=== PATIENT | female | born 1980 | race Caucasian/White ===

== ENCOUNTER → 2016-12-27 | Outpatient (CLI) | payer BC, OTHER ==
[~2016-12-27] MED LIST: ESCI10TA17 PO; LXP/20 PO; VNTHFA/IN INH
== END | disposition home or self-care (01) ==
LOC: C.PAPS 09:04
PROVIDERS: ATTEND Obstetrics & Gynecology
DX: Z01.419 Encounter for gynecological examination (general) (routine) without abnormal findings (principal)

== ENCOUNTER 2017-11-27 15:17 | Emergency (ER) | payer BC ==
[~2017-11-27] VITALS: Ht 167.6 cm; Wt 84.5 kg
[2017-11-27 16:23] VITALS: TEMP 36.7; Ht 167.6 cm; Wt 84.5 kg
[2017-11-27] MEDS ORDERED: SODIUM CHLORIDE 0.9% 1000ML 1,000 ML IV STA (17:10)
[2017-11-27] MEDS ORDERED: OPTIRAY 320 IV PRN (17:15)
[2017-11-27 17:52] LABS: BASO % 0.1 %; BASO ABS # 0.01 K/uL (0-0.2); EOS % 0.6 %; EOS ABS # 0.06 K/uL (0-0.5); HEMATOCRIT 40.6 % (37-47); HEMOGLOBIN 13.6 g/dL (12.0-16.0); IG# 0.03 K/uL (0.00-0.02); LYMPH % 8.6 %; LYMPH ABS # 0.87 K/uL (1.2-3.4); MEAN CORPUSCULAR HEMOGLOBIN 28.8 pg (25-34); MEAN CORPUSCULAR HGB CONC 33.5 g/dl (32-36); MEAN PLATELET VOLUME 9.5 fL (7.4-10.4); MONO % 1.5 %; MONO ABS # 0.15 K/uL (0.11-0.59); NEUT % 88.9 %; NEUT ABS # 8.97 K/uL (1.4-6.5); PLATELET COUNT 290 K/uL (130-400); RED CELL DISTRIBUTION WIDTH CV 13.4 % (11.5-14.5); RED CELL DISTRIBUTION WIDTH SD 42.1 fL (36.4-46.3); WHITE BLOOD COUNT 10.09 K/uL (4.8-10.8)
[2017-11-27] MEDS ORDERED: AMOX875T PO (17:58)
[2017-11-27] MEDS ORDERED: OMEP40CA41 PO (17:58)
[2017-11-27] MEDS ORDERED: BENZ100C84 PO (17:58)
[2017-11-27] MEDS ORDERED: NORE5TAB5 PO (17:58)
[2017-11-27 18:08] LABS: ALBUMIN 3.4 gm/dl (3.4-5.0); CALCIUM 8.9 mg/dl (8.5-10.1); CREATININE 0.89 mg/dl (0.60-1.20); POTASSIUM 3.4 mmol/L (3.5-5.1)
[2017-11-27 18:10] LABS: TOTAL PROTEIN 7.8 gm/dl (6.4-8.2)
--- NOTE | 2017-11-27 19:13 | DIAGNOSTIC IMAGING REPORT ---
ABD/PELVIS IV CONTRAST ONLY CT DOSE: 523.76 mGy.cm HISTORY: Pelvic pain RLQ pain TECHNIQUE: Multiaxial CT images of the abdomen and pelvis were performed following the use of intravenous contrast. A dose lowering technique was utilized adhering to the principles of ALARA. COMPARISON STUDY: None. FINDINGS: Lung bases are clear. Small hiatal hernia. Liver enhances uniformly. Spleen is uniform. Pancreas is unremarkable. Kidneys negative for hydronephrosis. There is a right kidney and extrarenal pelvis. Abdominal bowel pattern is nonobstructive. Appendix is unremarkable. No free fluid within the pelvic cul-de-sac. IMPRESSION: No significant abnormality identified within the abdomen or pelvis. Normal appendix The above report was generated using voice recognition software. It may contain grammatical, syntax or spelling errors. Electronically signed by: Charly Ellsworth M.D. 11/27/2017 7:12 PM Dictated Date/Time: 11/27/2017 7:03 PM
--- NOTE | 2017-11-27 20:30 | DIAGNOSTIC IMAGING REPORT ---
PELVIC COMPLETE NON OB CLINICAL HISTORY: lower abd pain, RLQ pain PAIN COMPARISON STUDY: None FINDINGS: The uterus measured 7.6 cm. Retroflexed configuration The endometrial stripe measured 10 mm. The right ovary measured 3.4 cm maximum dimension with normal vascular flow. The left ovary measured 3.4 cm maximum dimension with normal vascular flow. There is no ultrasonographic evidence of ovarian torsion. It should be noted that ovarian torsion can be present with normal Doppler ultrasonographic findings. There was no evidence of pathologic free pelvic fluid. IMPRESSION: 1. Retroflexed uterus 2. Otherwise negative pelvic ultrasound. The above report was generated using voice recognition software. It may contain grammatical, syntax or spelling errors. Electronically signed by: Charly Ellsworth M.D. 11/27/2017 8:29 PM Dictated Date/Time: 11/27/2017 8:28 PM
--- NOTE | 2017-11-27 20:31 | EMERGENCY ROOM VISIT NOTE ---
History First contact with patient: 16:55 Chief Complaint: PELVIC PAIN Stated Complaint: PELVIC PAIN, DIZZY History of Present Illness The patient is a 37 year old female who presents to the Emergency Room with complaints of lower abdominal pains. The patient reports that she has had lower abdominal pain for the past 2 weeks. She initially thought she may have had a urinary tract infection. She was seen by her primary care provider for flulike symptoms last week and was placed on Augmentin and Tessalon Perles. She has had persistent lower abdominal pains. She states the pain is worse when she is coughing and is better when she is leaning forward. The pain was initially intermittent but is now constant. She rates the discomfort 6.5/10. She reports that she has been having frequent diarrhea for the past 3 days. Patient reports she has a history of a tubal ligation and D&C for endometriosis. She takes control pills now but states that prior to that , her periods were very heavy. She denies any vomiting, fevers or abnormal vaginal discharge. Review of Systems A complete 10 point review of systems was reviewed with the patient with pertinent positives and negatives as per history of present illness. All else were negative. Past Medical/Surgical History Medical Problems: (1) Asthma (2) PNA (pneumonia) (3) Stomach problems Family History Diabetes mellitus FH: heart disease Hypertension Social History Smoking Status: Never Smoker Alcohol Use: none Drug Use: none Marital Status: Housing Status: lives with significant other Occupation Status: employed Current/Historical Medications Scheduled Amoxicillin & Pot Clavulanate (Augmentin 875-125 mg), 1 TAB PO BID Escitalopram (Lexapro), 20 MG PO QAM Norethindrone (Aygestin), 5 MG PO DAILY Omeprazole (Prilosec), 40 MG PO DAILY Scheduled PRN Albuterol Hfa (Ventolin Hfa), 3 PUFFS INH QID PRN Benzonatate (Tessalon Perles), 100 MG PO Q8 PRN for Cough Physical Exam Vital Signs Date Time Temp Pulse Resp B/P (MAP) Pulse Ox O2 Delivery O2 Flow Rate FiO2 11/27/17 20:57 90 18 120/71 97 11/27/17 17:53 98 18 105/71 97 Room Air 11/27/17 16:23 36.7 111 18 137/80 97 Room Air Physical Exam VITALS: Vitals are noted on the nurse's note and reviewed by myself. Vital signs stable. GENERAL: Here this is a 37-year-old femur, in no acute distress, nondiaphoretic , well-developed well-nourished. SKIN: The skin was without rashes. EARS: External auditory canals clear, tympanic membranes pearly carey without erythema or effusion bilaterally. EYES: Pupils equal round and reactive to light and accommodation. MOUTH: Mucous membranes moist. Tonsils are not enlarged. Pharynx without erythema or exudate. NECK: Supple without nuchal rigidity. No lymphadenopathy. HEART: Regular rate and rhythm without murmurs gallops or rubs. LUNGS: Clear to auscultation bilaterally without wheezes, rales or rhonchi. No retractions or accessory muscle use. ABDOMEN: Positive bowel sounds x 4. Soft, tenderness to palpation across the lower abdomen, right greater than left. No guarding or rebound tenderness. NEURO: Patient was alert and oriented to person place and time. Medical Decision & Procedures ER Provider Diagnostic Interpretation: ABD/PELVIS IV CONTRAST ONLY FINDINGS: Lung bases are clear. Small hiatal hernia. Liver enhances uniformly. Spleen is uniform. Pancreas is unremarkable. Kidneys negative for hydronephrosis. There is a right kidney and extrarenal pelvis. Abdominal bowel pattern is nonobstructive. Appendix is unremarkable. No free fluid within the pelvic cul-de-sac. IMPRESSION: No significant abnormality identified within the abdomen or pelvis. Normal appendix PELVIC COMPLETE NON OB FINDINGS: The uterus measured 7.6 cm. Retroflexed configuration The endometrial stripe measured 10 mm. The right ovary measured 3.4 cm maximum dimension with normal vascular flow. The left ovary measured 3.4 cm maximum dimension with normal vascular flow. There is no ultrasonographic evidence of ovarian torsion. It should be noted that ovarian torsion can be present with normal Doppler ultrasonographic findings. There was no evidence of pathologic free pelvic fluid. IMPRESSION: 1. Retroflexed uterus 2. Otherwise negative pelvic ultrasound. Laboratory Results 11/27/17 17:40 Red Blood Count 4.72, Mean Corpuscular Volume 86.0, Mean Corpuscular Hemoglobin 28.8, Mean Corpuscular Hemoglobin Concent 33.5, Mean Platelet Volume 9.5, Neutrophils (%) (Auto) 88.9, Lymphocytes (%) (Auto) 8.6, Monocytes (%) (Auto) 1.5, Eosinophils (%) (Auto) 0.6, Basophils (%) (Auto) 0.1, Neutrophils # (Auto) 8.97, Lymphocytes # (Auto) 0.87, Monocytes # (Auto) 0.15, Eosinophils # (Auto) 0.06, Basophils # (Auto) 0.01 11/27/17 17:40 Test 11/27/17 16:50 11/27/17 17:40 Urine Color DK YELLOW Urine Appearance CLOUDY (CLEAR) Urine pH 5.0 (4.5-7.5) Urine Specific [place] 1.029 (1.000-1.030) Urine Protein NEG (NEG) Urine Glucose (UA) NEG (NEG) Urine Ketones TRACE (NEG) Urine Occult Blood NEG (NEG) Urine Nitrite NEG (NEG) Urine Bilirubin NEG (NEG) Urine Urobilinogen NEG (NEG) Urine Leukocyte Esterase NEG (NEG) Urine WBC (Auto) 1-5 /hpf (0-5) Urine RBC (Auto) 10-30 /hpf (0-4) Urine Hyaline Casts (Auto) 1-5 /lpf (0-5) Urine Epithelial Cells (Auto) >30 /lpf (0-5) Urine Bacteria (Auto) NEG (NEG) White Blood Count 10.09 K/uL (4.8-10.8) Red Blood Count 4.72 M/uL (4.2-5.4) Hemoglobin 13.6 g/dL (12.0-16.0) Hematocrit 40.6 % (37-47) Mean Corpuscular Volume 86.0 fL (80-100) Mean Corpuscular Hemoglobin 28.8 pg (25-34) Mean Corpuscular Hemoglobin Concent 33.5 g/dl (32-36) Platelet Count 290 K/uL (130-400) Mean Platelet Volume 9.5 fL (7.4-10.4) Neutrophils (%) (Auto) 88.9 % Lymphocytes (%) (Auto) 8.6 % Monocytes (%) (Auto) 1.5 % Eosinophils (%) (Auto) 0.6 % Basophils (%) (Auto) 0.1 % Neutrophils # (Auto) 8.97 K/uL (1.4-6.5) Lymphocytes # (Auto) 0.87 K/uL (1.2-3.4) Monocytes # (Auto) 0.15 K/uL (0.11-0.59) Eosinophils # (Auto) 0.06 K/uL (0-0.5) Basophils # (Auto) 0.01 K/uL (0-0.2) RDW Standard Deviation 42.1 fL (36.4-46.3) RDW Coefficient of Variation 13.4 % (11.5-14.5) Immature Granulocyte % (Auto) 0.3 % Immature Granulocyte # (Auto) 0.03 K/uL (0.00-0.02) Anion Gap 10.0 mmol/L (3-11) Est Creatinine Clear Calc Drug Dose 94.8 ml/min Estimated GFR () 96.0 Estimated GFR (Non- 82.8 BUN/Creatinine Ratio 11.2 (10-20) Calcium Level 8.9 mg/dl (8.5-10.1) Total Bilirubin 0.3 mg/dl (0.2-1) Aspartate Amino Transf (AST/SGOT) 22 U/L (15-37) Alanine Aminotransferase (ALT/SGPT) 30 U/L (12-78) Alkaline Phosphatase 91 U/L (45-117) Total Protein 7.8 gm/dl (6.4-8.2) Albumin 3.4 gm/dl (3.4-5.0) Globulin 4.4 gm/dl (2.5-4.0) Albumin/Globulin Ratio 0.8 (0.9-2) Lipase 145 U/L (73-393) Medications Administered Medications (Trade) Dose Ordered Sig/Marcela Route Start Time Stop Time Status Last Admin Dose Admin Sodium Chloride 1,000 ml @ 999 mls/hr Q1H1M STAT IV 11/27/17 17:10 11/27/17 18:10 DC 11/27/17 17:10 999 MLS/HR ED Course The patient was evaluated as above. Labs were drawn and IV access was obtained. Patient was medicated with 1 L normal saline solution. CT of the abdomen and pelvis was performed and read by radiology as above. Patient was reevaluated and findings of our were discussed. Ultrasound was ordered. Discharge instructions were reviewed with the patient. The patient verbalized understanding of my assessment and treatment plan and was discharged home in good condition. Medical Decision Differential diagnosis includes appendicitis, colitis, gastroenteritis, pelvic inflammatory disease, ovarian cyst, ovarian torsion, endometriosis, urinary tract infection, C. difficile, among others. The patient is a 37-year-old female who presents today complaining of pelvic pain. Labs revealed no leukocytosis, anemia or concerning electrolyte abnormalities. Urinalysis was not suggestive of infection. CT of the abdomen and pelvis was performed and showed no acute inflammatory findings. Ultrasound was then performed and showed no acute findings. Patient was unable to produce a stool sample throughout her stay in the ED. Patient was offered pelvic exam but declined. She will follow-up with her OB/ MAGNETO ELECTRICIAN for this. She does have a history of endometriosis and admits that her symptoms today do feel similar to pain she has had due to this in the past. She was instructed to follow-up with INJECTION MOLDING TECHNICIAN. She was given an order to have her stool tested as an outpatient in case her diarrhea continues. Conservative measures were discussed with the patient. Based on the patient's presentation and work up, I feel the patient is stable for outpatient treatment. The patient was educated to return to the emergency department for any worsening of their current condition or new/concerning symptoms. She will follow up with INJECTION MOLDING TECHNICIAN. Medication Reconcilliation Current Medication List: was personally reviewed by pr Blood Pressure Screening Patient's blood pressure: Normal blood pressure Impression Primary Impression: Pelvic pain Departure Information Dispostion Home / Self-Care Condition GOOD Referrals Genaro Cifuentes M.D. (PCP) Gaurav Yates M.D. Patient Instructions My [facility] Additional Instructions You have been treated in the Emergency Department for your Abdominal Pain. Laboratory results and imaging studies have ruled out any emergent causes for your abdominal pain which would warrant admission or surgery. For pain control, you can use the following [id number] medicines (if >12 yo): - Regular strength (325mg/tab) Tylenol (acetaminophen) 2 tabs every 4-6 hours as needed. Do not exceed 12 tablets in a 24 hour period. Avoid taking more than 4 grams (4000 mg) of Tylenol per day. This includes any other sources of acetaminophen you may take on a regular basis. - Regular strength (200 mg/tab) Advil (ibuprofen) 1-2 tabs every 4-6 hours as needed. Do not exceed a dose of 3200 mg per day. Drink plenty of water and stay well hydrated. As with any trip to the Emergency Department, you should follow-up with your Primary Care Provider from today's visit. You should also follow-up with your INJECTION MOLDING TECHNICIAN. You have been provided with an order to have your stool tested. You may bring this to the main lab when you have collected a sample. Return to the emergency department if your symptoms persist despite treatment plan outlined above or if the following symptoms occur: Worsening pain, fever, vomiting or any other new/concerning symptoms.
[2017-11-27 20:57] VITALS: BP 120/71; PULSE 90; O2SAT 97
== END 2017-11-27 20:58 | disposition home or self-care (01) ==
LOC: C.EDB 15:19 → C.EDC 20:58
DX: R10.2 Pelvic and perineal pain (principal); Z98.51 Tubal ligation status; Z79.3 Long term (current) use of hormonal contraceptives; J45.909 Unspecified asthma, uncomplicated; Z87.01 Personal history of pneumonia (recurrent); Z83.3 Family history of diabetes mellitus; Z82.49 Family history of ischemic heart disease and other diseases of the circulatory system; Z79.899 Other long term (current) drug therapy

== ENCOUNTER 2019-11-07 05:55 | Observation (INO) ==
--- NOTE | 2019-11-02 12:35 | Anesthesiology Consultation ---
Date of Service November 02, 2019 Assessment & Plan (1) Encounter for pre-operative examination: Chart Review Chart Review: Acceptable Risk for Surgery and Patient NOT seen in Pre Admission Testing Consults Requested none History Surgery Operation Date: 11/07/19 07:30 Proposed Procedures p Robotic Assisted Laparoscopic Fundoplication - Edgard Schmitt MD, FACS s Esophagogastroduodenoscopy - Edgard Schmitt MD, FACS Height/Weight Height: 5 ft 6 in Weight: 88.451 kg Allergies Allergy/AdvReac Type Severity Reaction Status Date / Time magnesium salicylate Allergy Intermediate migraine Verified 11/01/19 16:48 headache latex Allergy Mild Hives Verified 11/01/19 16:48 tramadol Allergy Mild Shakiness Verified 11/01/19 16:48 paroxetine AdvReac Mild dizzy Verified 11/01/19 16:48 Medications Home Medications Medication Instructions Recorded Confirmed Last Taken albuterol sulfate 2 puff INHALATION Q6H PRN 05/24/19 11/01/19 06/14/19 05:30 escitalopram oxalate [Lexapro] 30 mg PO QAM 05/24/19 11/01/19 06/14/19 05:30 esomeprazole magnesium [Nexium] 40 mg PO BID 11/01/19 11/01/19 Unknown polyethylene glycol 3350 [Miralax] 17 g PO DAILY 11/01/19 11/01/19 Unknown Past Medical History Medical History Anxiety Asthma Bronchitis HX OF BRONCHITIS AGE 25 Constipation GERD (gastroesophageal reflux disease) Hiatal hernia History of anesthesia reaction HAD ASTHMA ATTACK ONE TIME AFTER MINOR KNEE SURGERY 20 YRS AGO Past Family History Family History Mother Diabetes Hypertension Stroke Father Heart disease Past Surgical History Surgical History History of colonoscopy History of dilatation and curettage 2009 & 2010 History of endometrial ablation History of tonsillectomy 2009 Hx of knee surgery Hx of tubal ligation Social History Smoking Status: Never smoker Do You Dip or Chew Tobacco: No Hx Alcohol Use: Yes alcohol intake frequency: holidays/special occasions only Hx Substance Use: No substance use type: does not use Testing Laboratory Results Laboratory Tests 11/01/19 11/01/19 13:15 13:15 WBC 7.20 Hgb 13.1 Plt Count 334 Sodium 139 Potassium 3.4 L Chloride 110 H Carbon Dioxide 24 BUN 8 Creatinine 0.72 Glucose 106 H
[2019-11-07] MEDS ORDERED: LR 15ML/HR IV SCH (06:00)
[2019-11-07] MEDS ORDERED: BUPIVACAINE 0.5 % 5 MG/1 ML MPF 30ML VIAL ONE (07:05)
[2019-11-07] MEDS ORDERED: SODIUM CHLORIDE 0.9% PF 50 ML VIAL ONE (07:05)
[2019-11-07] MEDS ORDERED: BUPIVACAINE LIPOSOME 1.3% 266 MG/20 ML VIAL ONE (07:05)
[2019-11-07] MEDS ORDERED: ONDANSETRON INJ 2 MG/ML 2 ML VIAL ONE (07:06)
[2019-11-07] MEDS ORDERED: GLYCOPYRROLATE 0.2 MG/ML VIAL ONE (07:06)
[2019-11-07] MEDS ORDERED: PROPOFOL IV EMULSION 10 MG/ML 20 ML VIAL IV ONE ×2 (07:06→11:03)
[2019-11-07] MEDS ORDERED: LIDOCAINE HCL 2% 2 ML VIAL/AMP(20MG/ML) INFIL ONE (07:06)
[2019-11-07] MEDS ORDERED: NEOSTIGMINE METHYLSULFATE 5 MG/5 ML SYR ONE (07:06)
[2019-11-07] MEDS ORDERED: DEXAMETHASONE SOD INJ 4 MG/ML VIAL ONE (07:06)
[2019-11-07] MEDS ORDERED: MIDAZOLAM HCL 1 MG/ML 2ML VIAL ONE (07:07)
[2019-11-07] MEDS ORDERED: fentaNYL citrate 100 MCG/2 ML VIAL ONE ×4 (07:07→12:07)
--- NOTE | 2019-11-07 07:29 | History & Physical Bridge Note ---
Date of Service November 07, 2019 History & Physical Bridge Note I have examined the patient, reviewed the History & Physical and in the interval since the performance of the History & Physical I have noted the following changes of clinical significance: no changes noted
[2019-11-07] MEDS ORDERED: ROCURONIUM BROMIDE 10 MG/ML 5 ML VIAL ONE (09:52)
[2019-11-07] MEDS ORDERED: CEFAZOLIN 2000MG 2,000 MG/15 ML SYR IV ONE (10:05)
[2019-11-07] MEDS ORDERED: FLOSEAL HEMOSTATIC MATRIX 10ML TOP ONE (10:06)
[2019-11-07] MEDS ORDERED: SURGICEL ABSORB HEMOSTAT 2IN X 14IN TOP ONE (10:06)
[2019-11-07] MEDS ORDERED: ACETAMINOPHEN 1000 MG/100 ML IV IV ONE (10:53)
[2019-11-07] MEDS ORDERED: CEFAZOLIN 250 MG/ML 1 GM VIAL ONE (11:16)
--- NOTE | 2019-11-07 11:45 | Operative Report ---
PG Post Operative Report Pre & Post Diagnosis Operation Date: 11/07/19 07:30 Pre-Op Diagnosis: Hiatal Hernia;Gastroesophageal reflux disease Post-Op Diagnosis: Hiatal Hernia;Gastroesophageal reflux disease I identified the patient and participated in the time-out.: Yes Procedure Operation Date: 11/07/19 07:30 Actual Procedures p Robotic-Assisted Laparoscopic Fundoplication; - Edgard Schmitt MD, FACS s Esophagogastroduodenoscopy - Edgard Schmitt MD, FACS Surgeon Edgard Schmitt MD, FACS Autocutter Jc STOUT Estimated Blood Loss 200 Findings Consistent with Post-Op Diagnosis Specimens Gastroesophageal fatpad and hernia sac Anesthesia Type General Complications none Disposition Accompanied Patient To Recovery: Yes Disposition: Recovery Room Description of Procedure Maria Esther is a 39-year-old who has medically refractory gastroesophageal reflux disease with a small hiatal hernia. I met her in the office recently and she is quite desirous of having a fundoplication. We discussed this in some detail. Discussed risk and benefits. Elected to proceed. On 11/07/2019 the patient brought the operating room and underwent a robot- assisted laparoscopic fundoplication. She did well. I was surprised at the size of the hiatal hernia but this came together under no tension. In addition we did a floppy Natalia with just 2 sutures. I contemplated doing a partial fundoplication however this laid very nicely so we performed a floppy Natalia instead. The liver retractor because a small tear in the left lobe of the liver and we use the aqua Mantis to control the bleeding. She tolerated it well. I did do an esophagoscopy the end of the case and scope went through the GE junction nicely and on retroflexion the fundoplication look quite nice. Procedure: The patient was brought to the operating room and laid in the supine position. General anesthesia was induced no tracheal intubation was performed. Prophylactic antibiotics were given. After appropriate timeout was called a 5 mm scope was used to direct a 5 mm port in the midline below the xiphoid process into the peritoneal cavity. There were no adhesions. Carbon dioxide was insufflated. Good visualization and 5 mm port was placed in the right inferior lateral aspect of the peritoneal cavity and a pretzel retractor was used to retract the liver. We had good visualization I was surprised at how much stomach was in the hernia. 5 mm port was placed on the left posteriorly and laterally and then 2 8 mm ports were placed on either side of the midline at about the midclavicular line. Finally a 12 mm assistance port was placed just to the left of the midline. The robot was docked. Trendelenburg position was obtained and we used the retractor to keep the liver superiorly position. The vessel sealer was used to take down the short gastrics we freed up the greater curvature quite nicely and came all the way up to the hiatus. We then freed up the sac along the entire circumference and this was done quite easily. We then identified the esophagus and the anterior and posterior vagus nerves and care was taken to avoid injury to these. We then removed the sac and we also remove the fat pad quite meticulously. 0 silk was used in a bqkwek-al-zhbuz fashion x2 to close the posterior crura. I used 1 more simple suture to pull the crura together. This was under no tension whatsoever and the tissue mike eared very healthy. We then pulled the posterior fundus around to the anterior fundus and this came together under no tension. A simple 2-0 silk suture was used to bring the fundus together. We then used 2 sutures that incorporated the posterior and anterior fundus and the esophagus 1 cm above the suture. We placed another suture 1 cm above to incorporate the anterior posterior fundus and the esophagus. I did use 2 separate 2-0 silk sutures to anchor the fundus to the crura anteriorly. As we were closing we could see there was a small tear in the liver from retraction along the left lobe. This is been oozing. Using an Aquamantys we were able to cauterize this. There was no further bleeding. I did place a piece of Surgicel over top of this area. Then an esophagoscopy was performed without difficulty. This brought us down to the gastroesophageal junction and I was able to cross this easily with the gastroscope. Evaluate the stomach look quite good. I insufflated carbon diox mary we did not see evidence of any air leaking at the repair site. On retroflexion the fundoplication look quite good. I then suctioned out carbon oxide from the stomach and insufflated to remove the scope. The larger port sites were closed with a heavy Maxon suture. 4 Monocryl was used in running septic or fashion approximate the wound edges after we had decompressed the stomach and really and undocked the robot. She tolerated well was extubated in the room. Microbial dressings were placed she is transported to the postanesthesia care in stable condition.
[2019-11-07] MEDS ORDERED: METOCLOPRAMIDE HCL INJ 5 MG/ML 2 ML VIAL IV ONE (12:00)
[2019-11-07] MEDS: fentaNYL citrate 100 MCG/2 ML VIAL IV PRN ×4 (12:06→12:30)
[2019-11-07] MEDS ORDERED: ONDANSETRON INJ 2 MG/ML 2 ML VIAL IV PRN (12:11)
[2019-11-07] MEDS ORDERED: ePHEDrine sulfate 50 MG/ML AMP IV PRN (12:11)
[2019-11-07] MEDS ORDERED: ATROPINE SULFATE 0.1 MG/ML 10ML SYR IV PRN (12:11)
--- NOTE | 2019-11-07 12:42 | XRay Report ---
XR chest 1V portable HISTORY: Postop. s/p tru COMPARISON: Chest 06/11/2007. FINDINGS: There are low lung volumes. There are bibasilar densities, left greater the right. The hear t is mildly enlarged. Mild central pulmonary vascular congestion without overt edema. There is subcut aneous emphysema within the neck base. Suspect a small amount of pneumomediastinum. There are small b ilateral pneumothoraces measuring a maximal pleural gap of 3 mm on the left and 9 mm on the right. IMPRESSION: 1. Small amount of pneumomediastinum and small bilateral pneumothoraces as described above. This is l ikely due to the recent postoperative change. Continued follow-up recommended. 2. Bibasilar densities are nonspecific but may represent atelectasis. 3. Mild congestive change. ACT 112: Negative or not required by law. Electronically signed by: Betito Garcia M.D. 11/07/2019 12:41 PM
--- NOTE | 2019-11-07 13:04 | Anesthesiology Progress Note ---
Date of Service November 07, 2019 Anesthesia Post Procedure Vital Signs Vital Signs: Temp Pulse Pulse Resp BP BP Pulse Ox 11/07/19 12:50 37 C 93 H 12 122/86 93 11/07/19 12:40 99 H 16 130/84 96 11/07/19 12:30 93 H 16 134/90 93 11/07/19 12:20 105 H 16 139/87 95 11/07/19 12:10 101 H 16 146/98 H 98 11/07/19 12:00 36.3 C L 112 H 16 126/86 99 11/07/19 06:20 36.8 C 89 20 126/88 95 Transfer of Care Handoff Completed per policy Notes Mental Status: alert / awake / arousable Patient Amnestic to Procedure: Yes Nausea / Vomiting: adequately controlled Pain: adequately controlled Airway Patency, RR, SpO2: stable & adequate BP & HR: stable & adequate Hydration State: stable & adequate Anesthetic Complications: no major complications apparent and Pt Satisfied with anesthetic care Notes: The patient is awake and comfortable.
[2019-11-07] MEDS ORDERED: ALBUTEROL HFA 8 GM INHALER INH PRN (13:18)
[2019-11-07] MEDS ORDERED: INFLUENZA VIRUS QUAD VACCINE 0.5 ML SYR IM ONE (13:41)
[2019-11-07] MEDS ORDERED: INFLUENZA ADMINISTRATION CHARGE ONE (13:41)
[2019-11-07] MEDS: D5W AND 1/2NSS 1,000 ML IV SCH ×2 (14:06→23:56)
[2019-11-07] MEDS: ONDANSETRON INJ 2 MG/ML 2 ML VIAL IV SCH ×3 (14:11→21:25)
[2019-11-07] MEDS: OXYCODONE HCL IR 5 MG TAB (IMMEDIATE RELEASE) PO PRN ×2 (14:11→20:10)
[2019-11-07] MEDS: METOCLOPRAMIDE HCL INJ 5 MG/ML 2 ML VIAL IV SCH ×2 (14:12→22:15)
--- NOTE | 2019-11-07 14:21 | Anesthesiology Progress Note ---
Date of Service November 07, 2019 Anesthesia Post Procedure Vital Signs Vital Signs: Temp Pulse Pulse Resp BP BP Pulse Ox 11/07/19 14:05 37.1 C 77 19 122/74 98 11/07/19 13:40 37 C 98 H 20 127/89 95 11/07/19 13:20 37.2 C 107 H 20 117/68 95 11/07/19 12:50 37 C 93 H 12 122/86 93 11/07/19 12:40 99 H 16 130/84 96 11/07/19 12:30 93 H 16 134/90 93 11/07/19 12:20 105 H 16 139/87 95 11/07/19 12:10 101 H 16 146/98 H 98 11/07/19 12:00 36.3 C L 112 H 16 126/86 99 11/07/19 06:20 36.8 C 89 20 126/88 95 Pain Intensity Abdomen: Pain Intensity: 3 Transfer of Care Handoff Completed per policy Notes Mental Status: alert / awake / arousable Patient Amnestic to Procedure: Yes Nausea / Vomiting: adequately controlled Pain: adequately controlled Airway Patency, RR, SpO2: stable & adequate BP & HR: stable & adequate Hydration State: stable & adequate Anesthetic Complications: no major complications apparent
[2019-11-07] MEDS: ACETAMINOPHEN 1,000 MG/100 ML VIAL IV SCH ×2 (16:38→23:56)
[2019-11-07] MEDS: MoRPHine SULFATE 2 MG/ML CARP IV PRN ×2 (19:15→21:25)
[2019-11-07] MEDS: PANTOprazole 40 MG TAB PO SCH (20:13)
[2019-11-07] MEDS: DOCUSATE SODIUM 100 MG CAP PO SCH (20:13)
[2019-11-08] MEDS: ONDANSETRON INJ 2 MG/ML 2 ML VIAL IV SCH ×3 (01:24→08:44)
[2019-11-08] MEDS: OXYCODONE HCL IR 5 MG TAB (IMMEDIATE RELEASE) PO PRN ×2 (03:26→09:54)
[2019-11-08] MEDS: METOCLOPRAMIDE HCL INJ 5 MG/ML 2 ML VIAL IV SCH (06:07)
[2019-11-08] MEDS: ACETAMINOPHEN 1,000 MG/100 ML VIAL IV SCH (07:43)
--- NOTE | 2019-11-08 08:35 | Anesthesiology Progress Note ---
Date of Service November 08, 2019 Anesthesia Post Procedure Vital Signs Vital Signs: Temp Pulse Pulse Pulse Resp BP BP 11/08/19 07:29 36.7 C 88 16 113/75 11/08/19 05:23 104/68 11/08/19 03:11 36.7 C 97 H 16 111/74 11/07/19 23:05 36.8 C 101 H 18 115/72 11/07/19 21:13 36.9 C 107 H 16 122/76 11/07/19 19:21 37.2 C 117 H 16 115/73 11/07/19 17:40 36.7 C 116 H 18 124/74 11/07/19 16:05 37.1 C 110 H 18 134/78 11/07/19 15:30 36.7 C 95 H 18 133/80 11/07/19 14:05 37.1 C 77 19 122/74 11/07/19 13:40 37 C 98 H 20 127/89 11/07/19 13:20 37.2 C 107 H 20 117/68 11/07/19 12:50 37 C 93 H 12 122/86 11/07/19 12:40 99 H 16 130/84 11/07/19 12:30 93 H 16 134/90 11/07/19 12:20 105 H 16 139/87 11/07/19 12:10 101 H 16 146/98 H 11/07/19 12:00 36.3 C L 112 H 16 126/86 Pulse Ox 11/08/19 07:29 97 11/08/19 05:23 11/08/19 03:11 94 11/07/19 23:05 94 11/07/19 21:13 95 11/07/19 19:21 95 11/07/19 17:40 94 11/07/19 16:05 94 11/07/19 15:30 93 11/07/19 14:05 98 11/07/19 13:40 95 11/07/19 13:20 95 11/07/19 12:50 93 11/07/19 12:40 96 11/07/19 12:30 93 11/07/19 12:20 95 11/07/19 12:10 98 11/07/19 12:00 99 Pain Intensity Abdomen: Pain Intensity: 3 Notes Mental Status: alert / awake / arousable and participated in evaluation Patient Amnestic to Procedure: Yes Nausea / Vomiting: adequately controlled Pain: adequately controlled Airway Patency, RR, SpO2: stable & adequate BP & HR: stable & adequate Hydration State: stable & adequate Anesthetic Complications: no major complications apparent and Pt Satisfied with anesthetic care
[2019-11-08] MEDS: D5W AND 1/2NSS 1,000 ML IV SCH (08:40)
[2019-11-08] MEDS: PANTOprazole 40 MG TAB PO SCH (08:40)
[2019-11-08] MEDS: DOCUSATE SODIUM 100 MG CAP PO SCH (08:40)
[2019-11-08] MEDS ORDERED: ESCITALOPRAM OXALATE 10 MG TAB PO SCH (09:00)
--- NOTE | 2019-11-08 12:12 | Discharge Summary ---
DISCHARGE DIAGNOSES: Hiatal hernia with gastroesophageal reflux, which was intractable to medical management. HOSPITAL COURSE: This is a very nice 39-year-old who has been suffering with progressively worse symptoms of gastroesophageal reflux, which is unresponsive to medical management. I was asked to evaluate her for surgical repair by her human resources hr representative. On 11/07/2019, the patient underwent an uncomplicated repair of her rather large hiatal hernia. I was a bit surprised at its size. We removed the sac and did a repair. There was no tension on her crura at all. We did a floppy Natalia fundoplication. She did well after surgery, although she had some pain. She had no reflux the night after surgery. The following morning, a barium swallow looked quite good. No evidence of extravasation and a good repair. We will see her back in the office in the next week for a postop check.
[2019-11-08] MEDS ORDERED: OXYCODONE HCL IR 5 MG TAB (IMMEDIATE RELEASE) PO STA (13:53)
--- NOTE | 2019-11-09 08:05 | Fluoroscopy Report ---
FL barium swallow w/o air CLINICAL HISTORY: 39 years-old Female presenting with s/p Natalia. TECHNIQUE: A routine single contrast esophagram was performed using 100 mL of water soluble Optiray 3 00. Multiple spot images of the esophagus were acquired both upright and prone. COMPARISON: None. FINDINGS: Ingestion: The patient was able to ingest contrast without difficulty. No barium pill was administere d. Aspiration: None. Esophageal mucosa: Normal. No evidence of intrinsic or extrinsic mass lesion. Esophageal motility: Tertiary contractions indicate dysmotility. A column of contrast was evident in the distal esophagus. Esophageal length: Normal. Gastroesophageal junction: Patent though less than normal opening likely due to expected postsurgical change of reported Natalia fundoplication with postoperative edema. No extraluminal contrast to sugge st perforation. No high-grade obstruction. Reflux: Reflux cannot be assessed given the presence of intraesophageal column of contrast. Gastric emptying: Limited evaluation of the stomach demonstrates normal gastric emptying. No obstruct ion or leak. Fluoroscopy dosage (mGy): Not available. Fluoroscopy time: 1.8 minutes. Number or time of high level fluoroscopy (HLF), digital spot, or digital subtraction images: 12. IMPRESSION: 1. Expected postsurgical appearance status post Natalia fundoplication. Mild presumed postoperative e stella in the region of the fundoplication without evidence of obstruction or perforation. 2. Esophageal dysmotility and delayed clearance not unexpected in the immediate postsurgical setting . Continued follow-up to be considered. ACT 112: Negative or not required by law. Electronically signed by: Efren Delacruz M.D. 11/09/2019 8:04 AM
== END 2019-11-08 14:40 | disposition home or self-care (01) ==
LOC: ASU 05:55 → 3W 05:55

== ENCOUNTER 2024-01-25 11:23 | Observation (INO) ==
[2024-01-25] MEDS: SODIUM CHLORIDE 0.9% 500 ML IV STA (11:57)
[2024-01-25 12:50] LABS: Basophils # (auto) 0.03 K/uL (0.00-0.20); Basophils % (auto) 0.4 %; Eosinophils # (auto) 0.12 K/uL (0.00-0.50); Eosinophils % (auto) 1.4 %; Hematocrit (blood only) 39.6 % (37.0-47.0); Hemoglobin 13.2 g/dl (12.0-16.0); Immature Granulocytes # (auto) 0.02 K/uL (0.01-0.20); Immature Granulocytes % (auto) 0.2 %; Lymphocytes # (auto) 2.18 K/uL (1.20-3.40); Lymphocytes % (auto) 25.7 %; Mean Corpuscular Hemoglobin 29.5 pg (25.0-34.0); Mean Corpuscular Hgb Conc 33.3 g/dL (32.0-36.0); Mean Corpuscular Volume 88.6 fL (80.0-100.0); Mean Platelet Volume 10.3 fL (9.4-12.4); Monocytes # (auto) 0.62 K/uL (0.11-0.59); Monocytes % (auto) 7.3 %; Neutrophils # (auto) 5.52 K/uL (1.40-6.50); Platelet Count 334 K/uL (130-400); RDW Coefficient of Variation 12.2 % (11.5-14.5); RDW Standard Deviation 39.7 fL (36.4-46.3); Red Blood Count 4.47 M/uL (4.20-5.40); White Blood Count 8.49 K/ul (4.8-10.8)
[2024-01-25 13:00] LABS: Alanine Aminotransferase 13 U/L (7-52); Albumin Globulin Ratio 1.3 (0.9-2); Albumin Level 4.3 gm/dl (3.4-5.0); Alkaline Phosphatase 61 U/L (34-104); Anion Gap 8 (3-11); Aspartate Aminotransferase 17 U/L (13-39); BUN Creatinine Ratio 21.4 (10-20); Bilirubin,Total 0.5 mg/dl (0.2-1.0); Blood Urea Nitrogen 15 mg/dl (6-23); Calcium 9.7 mg/dl (8.6-10.3); Carbon Dioxide 23 mmol/L (21-32); Chloride 107 mmol/L (98-107); Est GFR (Non-African American) 106.1 ml/min; Globulin 3.2 gm/dl (2.5-4.0); Glucose 96 mg/dl (70-99(Fasting)); Potassium 3.7 mmol/L (3.5-5.1); Sodium 138 mmol/L (136-145); Total Protein 7.5 gm/dl (6.0-8.3)
[2024-01-25 13:51] LABS: POC Urine Bilirubin 1+ (Negative); POC Urine Blood 50 (Negative); POC Urine Glucose Normal (Normal); POC Urine Leukocytes Negative (Negative); POC Urine Nitrite Negative (Negative); POC Urine Protein Negative (Negative); POC Urine Urobilinogen Normal (Normal); POC Urine pH 7 (4.5-7.5)
--- NOTE | 2024-01-25 14:38 | Emergency Department Note ---
History of Present Illness General Chief complaint: Abdominal Pain Stated complaint: AB PAIN Time Seen by Provider: 01/25/24 14:38 History of Present Illness Maximum Pain Intensity: 7 NAME: MICHELLE BLOCK AGE: 43 SEX: F : 1980 ARRIVES VIA: Ambulance INFORMANT: Patient ED PROVIDER(S): KRISTOPHER Rasheed, Shiela Joseph MD The patient is a 43-year-old female who arrives to the emergency department for evaluation of right flank and right lower quadrant pain. The patient reports she was recently seen here for a 4 mm obstructing kidney stone. At that time she was also diagnosed with a dilated appendix, however no appendicitis. She reports she is to have her appendix removed on Tuesday, however the pain from the kidney stone has worsened. She reports her pain is a 10/10, and she did have near syncope due to the pain. She arrived via ambulance and was provided with IV Toradol, and Zofran. She reports no fevers, however vomiting due to pain, she denies shortness of breath or chest pain. She reports she is currently taking Flomax for this known kidney stone. Home Medications Medication Instructions Recorded Confirmed Type escitalopram oxalate 20 mg tablet 30 mg PO QAM 05/24/19 01/25/24 History (Lexapro) fluticasone 250 mcg-salmeterol 50 1 inh inhalation BID 01/12/24 01/25/24 History mcg/dose blistr powdr for inhalation (Advair Diskus) multivitamin 1 tab PO DAILY 01/12/24 01/25/24 History ondansetron 4 mg disintegrating 4 mg PO Q6H PRN nausea and 01/12/24 01/25/24 Rx tablet vomiting #14 tabs oxycodone 5 mg tablet 5 mg PO Q6H PRN pain #14 tabs 01/12/24 01/25/24 Rx tamsulosin 0.4 mg capsule 0.4 mg PO HS 01/20/24 01/25/24 History Allergies Allergy/AdvReac Type Severity Reaction Status Date / Time magnesium salicylate Allergy Intermediate migraine Verified 01/20/24 11:14 headache latex Allergy Mild Hives Verified 01/20/24 11:14 tramadol Allergy Mild Shakiness Verified 01/20/24 11:14 paroxetine AdvReac Mild dizzy Verified 01/20/24 11:14 Past Med/Surg History Medical History Kidney stone Bronchitis hx-age 25 Constipation ongoing Hiatal hernia GERD (gastroesophageal reflux disease) hx-no current issues since sx. Anxiety Asthma daily and prn inh Surgical History Status post Natalia fundoplication (11/07/19) p Robotic-Assisted Laparoscopic Fundoplication; Esophagogastroduodenoscopy Dr. Scmhitt 11-07-19 Hx of knee surgery Hx of tubal ligation 2019 History of endometrial ablation History of anesthesia reaction age 16, asthma attack following knee surgery>"no issues since then" History of colonoscopy History of dilatation and curettage 2009 & 2010 History of tonsillectomy 2008 Family History Mother Diabetes Hypertension Stroke Father Heart disease Grandfather Colorectal cancer Social History Smoking Status: Never smoker Second Hand Exposure: Yes (hx growing up); Do You Dip or Chew Tobacco: No; Tobacco Cessation Education Requested by Patient: No Hx Alcohol Use: No Hx Substance Use: No Preferred Language: Bangladeshi Communication Ability: Effective Block Placer Required: No Beliefs That Will Affect Care: None marital status: Current Living Situation: Family current occupational status: employed current occupation: teacher How many Children do You have: 1 Other Information That Helps Us Care for You: No Feels Safe at Home: Yes Safety Concerns: Feels Safe At This Time Assistive Devices: None Physical Exam Vital Signs Vital Signs - 24 hr 01/25/24 11:39 01/25/24 15:10 01/25/24 15:45 Temperature 36.9 C Temperature Source Temporal Artery Scan Pulse Rate 93 H Pulse Rate [Right Finger] 84 90 Pulse Rhythm [Right Finger] Pulse Strength [Right Finger] Respiratory Rate 18 19 16 Respiratory Effort / Characteristics Non-Labored Spontaneous Respiratory Depth Normal Respiratory Pattern Regular Blood Pressure 122/79 Blood Pressure [Right Arm] 104/89 141/88 H Blood Pressure Mean 93 Blood Pressure Mean [Right Arm] 94 105 Blood Pressure Position Sitting Blood Pressure Position [Right Arm] Pulse Oximetry 98 97 99 Oxygen Delivery Method Room Air Room Air Room Air Sepsis Recent Fever Within 48 Hours No Sepsis New/Unexplained Change in Mental Status N/A Sepsis Action Taken by Nursing No Action Required 01/25/24 15:55 01/25/24 16:19 01/25/24 16:37 Temperature 37.3 C Temperature Source Oral Pulse Rate 85 86 Pulse Rate [Right Finger] 81 Pulse Rhythm [Right Finger] Regular Pulse Strength [Right Finger] Normal Respiratory Rate 19 20 Respiratory Effort / Characteristics Non-Labored Spontaneous Respiratory Depth Normal Respiratory Pattern Regular Blood Pressure 141/89 H Blood Pressure [Right Arm] 136/91 Blood Pressure Mean Blood Pressure Mean [Right Arm] 106 Blood Pressure Position Blood Pressure Position [Right Arm] Semi-fowlers Pulse Oximetry 99 98 Oxygen Delivery Method Room Air Room Air Sepsis Recent Fever Within 48 Hours Sepsis New/Unexplained Change in Mental Status Sepsis Action Taken by Nursing VITALS: Vitals are noted on the nurse's note and reviewed by myself. Vital signs stable. GENERAL: 43-year-old female, in no acute distress, nondiaphoretic, well- developed well-nourished. SKIN: The skin was without rashes, erythema, edema, or bruising. HEAD: Normocephalic atraumatic. HEART: Regular rate and rhythm without murmurs gallops or rubs. LUNGS: Clear to auscultation bilaterally without wheezes, rales or rhonchi. No retractions or accessory muscle use. ABDOMEN: Positive bowel sounds x 4. Right CVA tenderness, right lower quadrant tenderness to palpation. MUSCULOSKELETAL: No muscle atrophy, erythema, or edema noted. Full range of motion without joint tenderness in all extremities. No tenderness to palpation. Normal gait. Strength 5/5 throughout. NEURO: Patient was alert and oriented to person place and time. No focal neurological deficits. Course Administered Medications Acetaminophen (Acetaminophen 325 Mg Tab) 650 mg PO Q4H PRN PRN Reason: pain/fever Stop: 02/24/24 18:52 Last Admin: 01/26/24 15:41 Dose: 650 mg Documented By: Admin: 01/26/24 04:02 Dose: 650 mg Documented By: LINDA Escitalopram Oxalate (Escitalopram Oxalate 10 Mg Tab) 30 mg PO [facility] Stop: 02/25/24 08:59 Last Admin: 01/26/24 08:24 Dose: 30 mg Documented By: HARJIT Fluticasone/Vilanterol (Fluticasone/Vilanterol 200/25mcg 14 Puffs/Inhaler) 1 puffs INH DAILY [place]; Protocol Stop: 02/25/24 08:59 Last Admin: 01/26/24 08:26 Dose: Not Given Documented By: HILARIO Ceftriaxone Sodium 1,000 mg/ (Dextrose) 50 mls @ 100 mls/hr IV Q24H [place]; Protocol Stop: 02/05/24 15:59 Last Infusion: 01/26/24 16:13 Dose: Infused Documented By: Admin: 01/26/24 15:42 Dose: 100 mls/hr Documented By: HILARIO Lactated Ringer's (Lr) 1,000 mls @ 125 mls/hr IV .Q8H [place] Stop: 02/25/24 03:29 Last Infusion: 01/26/24 16:13 Dose: 125 mls/hr Documented By: Infusion: 01/26/24 15:50 Dose: 0 mls/hr Documented By: Admin: 01/26/24 12:09 Dose: 125 mls/hr Documented By: Infusion: 01/26/24 12:09 Dose: Infused Documented By: Admin: 01/26/24 04:23 Dose: 125 mls/hr Documented By: KISHA Multivitamins (Multivitamin Tab) 1 tab PO DAILY [place] Stop: 02/25/24 08:59 Last Admin: 01/26/24 08:26 Dose: Not Given Documented By: HARJIT Ondansetron HCl (Ondansetron Inj 2 Mg/Ml 2 Ml Vial) 4 mg IV Q6H PRN PRN Reason: Nausea Stop: 02/24/24 18:52 Last Admin: 01/26/24 03:18 Dose: 4 mg Documented By: ENRIKE Fluticasone/Salmeterol (Fluticasone/Salmeterol 250/50 (Advair) 14 Puff/1 Inhaler) 1 puffs INH BID [place] Stop: 02/25/24 08:59 Last Admin: 01/26/24 09:53 Dose: 1 puffs Documented By: HARJIT Tamsulosin HCl (Tamsulosin Hcl 0.4 Mg Cap) 0.4 mg PO HS [place] Stop: 02/24/24 20:59 Last Admin: 01/25/24 21:50 Dose: 0.4 mg Documented By: LINDA Discontinued Medications Sodium Chloride (Nss) 500 mls @ 999 mls/hr IV .Q31M STA Stop: 01/25/24 12:10 Last Infusion: 01/25/24 12:36 Dose: Infused Documented By: Admin: 01/25/24 11:57 Dose: 999 mls/hr Documented By: NNEKA Sodium Chloride (Nss) 1,000 mls @ 999 mls/hr IV .Q1H1M [place] Stop: 01/25/24 16:45 Last Infusion: 01/25/24 19:51 Dose: Infused Documented By: Admin: 01/25/24 16:03 Dose: 999 mls/hr Documented By: Infusion: 01/25/24 16:03 Dose: Infused Documented By: Admin: 01/25/24 15:08 Dose: 999 mls/hr Documented By: VLADIMIR Ceftriaxone Sodium (Rocephin) 1,000 mg in 50 mls @ 100 mls/hr IV NOW STA Stop: 01/25/24 16:29 Last Infusion: 01/25/24 19:51 Dose: Infused Documented By: Admin: 01/25/24 16:18 Dose: 100 mls/hr Documented By: ALMA Lactated Ringer's (Lr) 1,000 mls @ 999 mls/hr IV .Q1H1M ONE Stop: 01/26/24 04:17 Last Infusion: 01/26/24 04:24 Dose: Infused Documented By: Admin: 01/26/24 03:25 Dose: 999 mls/hr Documented By: LINDA Miscellaneous (Patient's Height &/Or Weight Needed) 1 each N/A Q30M [place] Stop: 01/25/24 23:46 Last Admin: 01/25/24 22:12 Dose: Not Given Documented By: Admin: 01/25/24 22:12 Dose: Not Given Documented By: Admin: 01/25/24 22:12 Dose: Not Given Documented By: Admin: 01/25/24 20:57 Dose: 1 each Documented By: LINDA Morphine Sulfate (Morphine Sulfate 4 Mg/Ml 1 Ml Carp\\Vial) 4 mg IV NOW STA Stop: 01/25/24 14:44 Last Admin: 01/25/24 15:00 Dose: 4 mg Documented By: MES Ondansetron HCl (Ondansetron Inj 2 Mg/Ml 2 Ml Vial) 4 mg IV NOW STA Stop: 01/25/24 14:44 Last Admin: 01/25/24 15:00 Dose: 4 mg Documented By: [facility] Oxybutynin Chloride (Oxybutynin Chloride 5 Mg Tab) 5 mg PO NOW STA Stop: 01/26/24 10:27 Last Admin: 01/26/24 11:01 Dose: 5 mg Documented By: [facility] Medical Decision Making Differential Diagnosis Appendicitis, ovarian cyst, ovarian torsion, ectopic , TOA, PID, infections, diverticulitis, UTI, obstruction, mesenteric ischemia, aortic pathology, inflammatory bowel disease, renal colic, PUD, pancreatitis, biliary pathology, hernia, volvulus, constipation, as well as other pathologies. Medical Records Attestation: I reviewed the patient's medical records. Home Medications Current Medication List: was personally reviewed by me Laboratory Data Attestation: I reviewed the patient's lab results. No leukocytosis, stable hemoglobin and hematocrit, no electrolyte abnormalities, urinalysis shows 2+ ketones, 1+ blood, trace leukocyte esterase. 01/26/24 06:34 01/26/24 06:34 Lab Results 01/25/24 01/25/24 01/25/24 Range/Units 12:00 13:39 13:47 WBC 8.49 (4.8-10.8) K/ul RBC 4.47 (4.20-5.40) M/uL Hgb 13.2 (12.0-16.0) g/dl Hct 39.6 (37.0-47.0) % MCV 88.6 (80.0-100.0) fL MCH 29.5 (25.0-34.0) pg MCHC 33.3 (32.0-36.0) g/dL RDW Std Deviation 39.7 (36.4-46.3) fL RDW Coeff of Alise 12.2 (11.5-14.5) % Plt Count 334 (130-400) K/uL MPV 10.3 (9.4-12.4) fL Immature Gran % (Auto) 0.2 % Neut % (Auto) 65.0 % Lymph % (Auto) 25.7 % [place] % (Auto) 7.3 % Eos % (Auto) 1.4 % Baso % (Auto) 0.4 % Neut # (Auto) 5.52 (1.40-6.50) K/uL Lymph # (Auto) 2.18 (1.20-3.40) K/uL [place] # (Auto) 0.62 H (0.11-0.59) K/uL Eos # (Auto) 0.12 (0.00-0.50) K/uL Baso # (Auto) 0.03 (0.00-0.20) K/uL Immature Gran # (Auto) 0.02 (0.01-0.20) K/uL Sodium 138 (136-145) mmol/L Potassium 3.7 (3.5-5.1) mmol/L Chloride 107 (98-107) mmol/L Carbon Dioxide 23 (21-32) mmol/L Anion Gap 8 (3-11) BUN 15 (6-23) mg/dl Creatinine 0.70 (0.6-1.2) mg/dl Est Cr Clr Drug Dosing Not Reportable Est GFR ( Amer) 123.0 ml/min Est GFR (Non-Af Amer) 106.1 ml/min BUN/Creatinine Ratio 21.4 H (10-20) Glucose 96 (70-99(Fasting)) mg/dl Calcium 9.7 (8.6-10.3) mg/dl Total Bilirubin 0.5 (0.2-1.0) mg/dl AST 17 (13-39) U/L ALT 13 (7-52) U/L Alkaline Phosphatase 61 (34-104) U/L Total Protein 7.5 (6.0-8.3) gm/dl Albumin 4.3 (3.4-5.0) gm/dl Globulin 3.2 (2.5-4.0) gm/dl Albumin/Globulin Ratio 1.3 (0.9-2) Urine Color Yellow Urine Appearance Cloudy A (Clear) Urine pH 8.5 H (4.5-7.5) POC Urine pH 7 (4.5-7.5) Ur Specific [place] > 1.045 H (1.000-1.030) Urine Protein 1+ H (Negative) POC Urine Protein Negative (Negative) Urine Glucose (UA) Negative (Negative) POC Ur Glucose (UA) Normal (Normal) Urine Ketones 2+ H (Negative) POC Urine Ketones 2+ (Moderate) H (Negative) Urine Blood 1+ H (Negative) POC Urine Blood 50 H (Negative) Urine Nitrite Negative (Negative) POC Urine Nitrite Negative (Negative) Urine Bilirubin Negative (Negative) POC Urine Bilirubin 1+ H (Negative) Urine Urobilinogen Negative (Negative) POC Urine Urobilinogen Normal (Normal) Ur Leukocyte Esterase Trace H (Negative) POC U Leukocyte Esteras Negative (Negative) Urine WBC (Auto) 0-5 (0-5) /hpf Urine RBC (Auto) 11-20 H (0-2) /hpf U Hyaline Cast (Auto) 0-2 (0-2) /lpf U Epithel Cells (Auto) 11-20 H (0-2) /hpf Urine Bacteria (Auto) 2+ H (None Seen) POC Ur Test NEG (NEG) Imaging Data Radiologist's Impression: Abdomen/Pelvis CT 01/25/24 13:16 CT OF THE ABDOMEN AND PELVIS WITH CONTRAST CLINICAL HISTORY: Right-sided abdominal pain. COMPARISON STUDY: CT of the abdomen and pelvis January 12, 2024. TECHNIQUE: Following IV administration of 94 mL of Optiray, axial images of the abdomen and pelvis were obtained from the lung bases to the proximal femurs. Images were reviewed in the axial, sagittal, and coronal planes. IV contrast was administered without complication. Automated exposure control was utilized for the study. A dose lowering technique was utilized adhering to the principles of ALARA. CT DOSE: 1082.32 mGy.cm FINDINGS: Lung bases are unremarkable. No pneumatosis, free air or portal venous gas is present. An intermediate attenuation segment 7 hepatic lesion is probably benign. There is no biliary or pancreatic ductal dilatation. Left kidney, adrenal glands and pancreas are unremarkable. Moderate right hydronephrosis has increased since CT of January 12, 2024. There has been distal migration of the previously described 4 mm right ureteral calculus now within the distal ureter, just proximal to the ureterovesical junction. The right nephrogram is delayed. There is no evidence for a bowel obstruction. The appendix is mildly dilated, measuring 1.1 cm in caliber. No periappendiceal infiltration is present. Ovaries are not enlarged. IMPRESSION: 1. Increase in moderate right hydronephrosis with delayed nephrogram due to a 4 mm right ureteral calculus now within the distal right ureter. 2. No bowel obstruction. No bowel wall thickening. 3. Mildly dilated appendix without adjacent infiltration. An underlying mucocele cannot be excluded. Nonemergent Surgical consultation is recommended. ACT 112: Negative or not required by law. Electronically signed by: Frantz Quezada M.D. 01/25/2024 2:38 PM MDM Narrative The patient is a 43-year-old female who arrives to the emergency department with her for the above-stated complaint. Upon examination the patient is having severe right CVA and RLQ pain. She states she is unable to control her urination due to the pain. Initial workup was performed in triage including a saline lock, cbc, cmp, urinalysis, and administration of 1LNSS. After examination the patient was placed in a room from the waiting area for administration of morphine, zofran and a second 1LNSS. CBC, CMP were reassuring, urinalysis showed bacteriuria. Ct imaging showed the known nephrolithiasis however it has descended into the distal right ureter. Urology was consulted regarding the bacteriuria. It was decided the patient be taken to the OR for stenting and given IV rocephin for treatment. Case management was notified as well as [facility] hospitalist group. Dr. Silva will take over care of the patient upon admission with Dr. Matthew from urology performing her procedure. Please refer to their documentation for further patient care. Impression & Plan Ureterolithiasis, Hydronephrosis due to obstruction of ureter Discharge Plan Visit Data Chief Complaint: Abdominal Pain Stated Complaint: AB PAIN ED Provider: Shiela Joseph ED Midlevel Provider: Doris Nye Discharge Problem: Ureterolithiasis, Hydronephrosis due to obstruction of ureter Patient Disposition: Admitted As Inpatient Discharge Instructions Interventions: ED Discharge Assessment Last Done: 01/25/24 16:19
--- NOTE | 2024-01-25 14:39 | CT Scan Report ---
CT OF THE ABDOMEN AND PELVIS WITH CONTRAST CLINICAL HISTORY: Right-sided abdominal pain. COMPARISON STUDY: CT of the abdomen and pelvis January 12, 2024. TECHNIQUE: Following IV administration of 94 mL of Optiray, axial images of the abdomen and pelvis we re obtained from the lung bases to the proximal femurs. Images were reviewed in the axial, sagittal, and coronal planes. IV contrast was administered without complication. Automated exposure control wa s utilized for the study. A dose lowering technique was utilized adhering to the principles of ALARA . CT DOSE: 1082.32 mGy.cm FINDINGS: Lung bases are unremarkable. No pneumatosis, free air or portal venous gas is present. An i ntermediate attenuation segment 7 hepatic lesion is probably benign. There is no biliary or pancreati c ductal dilatation. Left kidney, adrenal glands and pancreas are unremarkable. Moderate right hydron ephrosis has increased since CT of January 12, 2024. There has been distal migration of the previously described 4 mm right ureteral calculus now within the distal ureter, just proximal to the ureterovesi marquis junction. The right nephrogram is delayed. There is no evidence for a bowel obstruction. The appe ndix is mildly dilated, measuring 1.1 cm in caliber. No periappendiceal infiltration is present. Ovar ies are not enlarged. IMPRESSION: 1. Increase in moderate right hydronephrosis with delayed nephrogram due to a 4 mm right ureteral marquis culus now within the distal right ureter. 2. No bowel obstruction. No bowel wall thickening. 3. Mildly dilated appendix without adjacent infiltration. An underlying mucocele cannot be excluded. Nonemergent Surgical consultation is recommended. ACT 112: Negative or not required by law. Electronically signed by: Frantz Quezada M.D. 01/25/2024 2:38 PM
[2024-01-25 14:47] LABS: Appearance Urine Cloudy (Clear); Bacteria Urine Automated 2+ (None Seen); Bilirubin Urine Negative (Negative); Blood Urine 1+ (Negative); Cast Urine Automated 0-2 /lpf (0-2); Color Urine Yellow; Glucose Urine UA Negative (Negative); Ketones Urine 2+ (Negative); Leukocyte Esterase Urine Trace (Negative); Nitrite Urine Negative (Negative); Protein Urine 1+ (Negative); Specific Gravity Urine > 1.045 (1.000-1.030); Urobilinogen Urine Negative (Negative); WBC Urine Automated 0-5 /hpf (0-5); pH Urine 8.5 (4.5-7.5)
[2024-01-25] MEDS: MoRPHine SULFATE 4 MG/ML 1 ML CARP\\VIAL IV STA (15:00)
[2024-01-25] MEDS: ONDANSETRON INJ 2 MG/ML 2 ML VIAL IV STA (15:00)
[2024-01-25] MEDS: SODIUM CHLORIDE 0.9% 1,000 ML IV SCH (15:08)
--- NOTE | 2024-01-25 16:10 | Urology Consultation ---
Date of Consultation January 25, 2024 Assessment & Plan (1) Acute right flank pain: (2) Hydronephrosis due to obstruction of ureter: (3) Ureterolithiasis: 43 yo/F presented to the emergency department today for acute right flank pain secondary to an obstructing right distal ureteral calculus with hydronephrosis She is afebrile and hemodynamically stable Labs reviewedcreatinine 0.70, WBC 8.49, hemoglobin 13.2 Urinalysis with 1+ blood, trace LE, 2+ bacteria Urine culture is pending--follow culture Continues to have moderate right flank and right lower quadrant discomfort CT imaging reviewed and discussed with patient Discussed options for stone management We discussed recommendation for right ureteral stent placement given second ER presentation for acute right flank pain and her UA with bacteria Ureteral stents were discussed in detail Discussed that stone treatment would take place at a later date She is agreeable to the plan Will proceed to the OR for cystoscopy, retrograde pyelogram and right ureteral stent placement Risk and benefits of procedure to be reviewed with patient by Dr. Matthew Keep NPO for procedure Discussed plan of care with ER provider She will be given IV ceftriaxone preoperatively Continue supportive care Supervising Physician Co-Signing Physician Notes Discussed patient with SATHYA. Agree with plan. Recommend cystoscopy, right retrograde right ureteral stent given positive UA and bounce back admission. Discussed reason why we cannot treat stone at this time. Consent obtained. Patient marked. Ceftriaxone for preop antibiotics History of Present Illness History of Present Illness This is a 43-year-old female with a right-sided obstructing ureteral stone. Patient initially presented to the emergency department on 01/12/[address] scan was performed. CT showed an obstructing 4 mm proximal right ureteral calculus with hydronephrosis. She was also noted to have a dilated appendix, concerning for mucocele, no acute appendicitis. She was discharged from the ED. She returned to the ED today with worsening right flank and right lower quadrant abdominal pain. Labs showed creatinine 0.70, WBC 8.49, hemoglobin 13.2. Urinalysis notable for 1+ blood, trace LE, 11-20 RBC, 11-20 epithelial cells and 2+ bacteria. Urine negative. CT imaging showed increase in moderate right hydronephrosis with delayed nephrogram due to to a 4 mm right ureteral calculus now within the distal right ureter. She was afebrile and hemodynamically stable in the ED. Reports pain is 6/10 at present. Nausea/vomiting improved since arrival. No fever or chills. She reports some dysuria and urinary incontinence. No hematuria. Last ate at 0700, but vomited afterward. This is her first kidney stone. No known family history of stones. She had outpatient consultation with general surgery regarding mucocele and is pending appendectomy on 01/30. Allergies Allergy/AdvReac Type Severity Reaction Status Date / Time magnesium salicylate Allergy Intermediate migraine Verified 01/20/24 11:14 headache latex Allergy Mild Hives Verified 01/20/24 11:14 tramadol Allergy Mild Shakiness Verified 01/20/24 11:14 paroxetine AdvReac Mild dizzy Verified 01/20/24 11:14 Home Medications Medication Instructions Recorded Confirmed Type escitalopram oxalate 20 mg tablet 30 mg PO QAM 05/24/19 01/25/24 History (Lexapro) fluticasone 250 mcg-salmeterol 50 1 inh inhalation BID 01/12/24 01/25/24 History mcg/dose blistr powdr for inhalation (Advair Diskus) multivitamin 1 tab PO DAILY 01/12/24 01/25/24 History ondansetron 4 mg disintegrating 4 mg PO Q6H PRN nausea and 01/12/24 01/25/24 Rx tablet vomiting #14 tabs oxycodone 5 mg tablet 5 mg PO Q6H PRN pain #14 tabs 01/12/24 01/25/24 Rx tamsulosin 0.4 mg capsule 0.4 mg PO HS 01/20/24 01/25/24 History Patient History Medical History Kidney stone Bronchitis hx-age 25 Constipation ongoing Hiatal hernia GERD (gastroesophageal reflux disease) hx-no current issues since sx. Anxiety Asthma daily and prn inh Surgical History Status post Natalia fundoplication (11/07/19) p Robotic-Assisted Laparoscopic Fundoplication; Esophagogastroduodenoscopy Dr. Schmitt 11-07-19 Hx of knee surgery Hx of tubal ligation 2019 History of endometrial ablation History of anesthesia reaction age 16, asthma attack following knee surgery>"no issues since then" History of colonoscopy History of dilatation and curettage 2009 & 2010 History of tonsillectomy 2009 Family History Mother Diabetes Hypertension Stroke Father Heart disease Grandfather Colorectal cancer Social History Smoking Status: Never smoker Second Hand Exposure: Yes (hx growing up); Do You Dip or Chew Tobacco: No; Hx Alcohol Use: No Hx Substance Use: No Preferred Language: Paraguayan Communication Ability: Effective Administrative Assistant Data Entry Required: No Beliefs That Will Affect Care: None marital status: Current Living Situation: Family and Significant Other current occupational status: employed current occupation: teacher How many Children do You have: 1 Feels Safe at Home: Yes Assistive Devices: Contacts and Glasses Review of Systems Review of Systems: ROS was performed with pertinent positives noted as above; all other systems negative Physical Exam Constitutional: well developed and well nourished; no acute distress Respiratory: normal respiratory effort; no respiratory distress and no labored breathing Gastrointestinal (Abdomen): Inspection/Auscultation: abdomen normal to inspection Musculoskeletal: Head/Neck/Chest: normocephalic Neurologic: moves all extremities and awake Psychiatric: Orientation: alert and oriented x 3 Results & Data Vital Signs (Past 12 Hours) Vital Signs Temp Pulse Pulse Resp BP BP Pulse Ox 01/25/24 15:55 85 01/25/24 15:45 90 16 141/88 H 99 01/25/24 15:10 84 19 104/89 97 01/25/24 11:39 36.9 C 93 H 18 122/79 98 O2 Del Method 01/25/24 15:55 01/25/24 15:45 Room Air 01/25/24 15:10 Room Air 01/25/24 11:39 Room Air PG Care Time/CCT Total # of Minutes Spent Total Time Spent with Patient: Total time spent is greater than 50% in coordination of care (as documented) at patient's floor/unit and/or counseling patient: Coding Level of Care Code 70439 OFFICE CONSULT LVL Diagnoses Acute right flank pain R10.9 Hydronephrosis due to obstruction of ureter N13.1 Ureterolithiasis N20.1
[2024-01-25] MEDS ORDERED: LIDOCAINE 2% 2 ML VIAL/AMP(20MG/ML) INFIL ONE ×2 (16:12→17:30)
[2024-01-25] MEDS ORDERED: PROPOFOL IV EMULSION 10 MG/ML 20 ML VIAL IV ONE ×2 (16:12→17:30)
[2024-01-25] MEDS ORDERED: fentaNYL citrate PF 100 MCG/2 ML VIAL ONE (16:12)
--- NOTE | 2024-01-25 16:14 | Anesthesiology Consultation ---
Date of Service January 25, 2024 Assessment & Plan Chart Review Chart Review: Acceptable Risk for Surgery and Patient NOT seen in Pre Admission Testing Consults Requested none ASA ASA2E Proposed Anesthesia Anesthesia Type: MAC Risk / Benefits Reviewed With: PT / POA / Parent / Guardian, Accepts Plan and Informed Consent Obtained History Surgery Operation Date: 01/25/24 13:35 Proposed Procedures p Cystoscopy, Retrograde Pyelogram, Right Stent Placement - Baron Matthew MD Height/Weight Height: 5 ft 6 in Allergies Allergy/AdvReac Type Severity Reaction Status Date / Time magnesium salicylate Allergy Intermediate migraine Verified 01/20/24 11:14 headache latex Allergy Mild Hives Verified 01/20/24 11:14 tramadol Allergy Mild Shakiness Verified 01/20/24 11:14 paroxetine AdvReac Mild dizzy Verified 01/20/24 11:14 Medications Home Medications Medication Instructions Recorded Confirmed Last Taken escitalopram oxalate 20 mg tablet 30 mg PO QAM 05/24/19 01/25/24 11/07/19 05:00 (Lexapro) fluticasone 250 mcg-salmeterol 50 1 inh inhalation BID 01/12/24 01/25/24 Unknown mcg/dose blistr powdr for inhalation (Advair Diskus) multivitamin 1 tab PO DAILY 01/12/24 01/25/24 Unknown ondansetron 4 mg disintegrating 4 mg PO Q6H PRN nausea and 01/12/24 01/25/24 Unknown tablet vomiting #14 tabs oxycodone 5 mg tablet 5 mg PO Q6H PRN pain #14 tabs 01/12/24 01/25/24 Unknown tamsulosin 0.4 mg capsule 0.4 mg PO HS 01/20/24 01/25/24 Unknown Past Medical History Medical History Kidney stone Bronchitis hx-age 25 Constipation ongoing Hiatal hernia GERD (gastroesophageal reflux disease) hx-no current issues since sx. Anxiety Asthma daily and prn inh Past Family History Family History Mother Diabetes Hypertension Stroke Father Heart disease Grandfather Colorectal cancer Past Surgical History Surgical History Status post Natalia fundoplication (11/07/19) p Robotic-Assisted Laparoscopic Fundoplication; Esophagogastroduodenoscopy Dr. Schmitt 11-07-19 Hx of knee surgery Hx of tubal ligation 2019 History of endometrial ablation History of anesthesia reaction age 16, asthma attack following knee surgery>"no issues since then" History of colonoscopy History of dilatation and curettage 2010 & 2011 History of tonsillectomy 2009 Past Anesthesia History No Hx of Anesthesia Complications and No Family Hx of Anesthesia Complications Social History Smoking Status: Never smoker Do You Dip or Chew Tobacco: No Hx Alcohol Use: No alcohol intake frequency: holidays/special occasions only Hx Substance Use: No substance use type: does not use Review of Systems ROS Unobtainable: All systems reviewed & are unremarkable except as noted in HPI & below Physical Exam Vital Signs Last Vital Signs Temp 36.9 C 01/25/24 11:39 Pulse 85 01/25/24 15:55 Resp 16 01/25/24 15:45 BP 141/88 H 01/25/24 15:45 Pulse Ox 99 01/25/24 15:45 O2 Del Method Room Air 01/25/24 15:45 ENMT Mouth: no TMJ abnormality Thyromental Distance: > or= 3.5 Finger Breadths Mallampati Class: II Neck normal visual inspection and trachea midline; neck extension not limited Respiratory normal respiratory effort Auscultation: lungs clear to auscultation bilaterally Cardiovascular Rate/Rhythm: regular rate and regular rhythm Heart Sounds: no murmur Musculoskeletal Spine: normal cervical ROM Extremities: full ROM of extremities Neurologic moves all extremities Psychiatric Orientation: alert and oriented x 3 Testing Laboratory Results 01/25/24 12:00 01/25/24 12:00 Urine Color Yellow 01/25/24 13:39 Urine Appearance Cloudy (Clear) A 01/25/24 13:39 Urine pH 8.5 (4.5-7.5) H 01/25/24 13:39 Ur Specific [place] > 1.045 (1.000-1.030) H 01/25/24 13:39 Urine Protein 1+ (Negative) H 01/25/24 13:39 Urine Glucose (UA) Negative (Negative) 01/25/24 13:39 Urine Ketones 2+ (Negative) H 01/25/24 13:39 Urine Nitrite Negative (Negative) 01/25/24 13:39 Ur Leukocyte Esterase Trace (Negative) H 01/25/24 13:39 Urine WBC (Auto) 0-5 /hpf (0-5) 01/25/24 13:39 Urine RBC (Auto) 11-20 /hpf (0-2) H 01/25/24 13:39 U Hyaline Cast (Auto) 0-2 /lpf (0-2) 01/25/24 13:39 U Epithel Cells (Auto) 11-20 /hpf (0-2) H 01/25/24 13:39 Urine Bacteria (Auto) 2+ (None Seen) H 01/25/24 13:39 01/25/24 13:47 POC Ur Test NEG
[2024-01-25] MEDS: cefTRIAXone SODIUM 1,000 MG/50 ML BAG IV STA (16:18)
[2024-01-25] MEDS ORDERED: MIDAZOLAM HCL 1 MG/ML 2ML VIAL ONE (16:20)
--- NOTE | 2024-01-25 16:45 | History & Physical Report ---
Date of Service January 25, 2024 Assessment & Plan (1) Hydronephrosis due to obstruction of ureter: Plan: Ureterolithiasis with hydronephrosis Urology following. Pending cystoscopy and right stent placement, recommended for medical admission Continue Rocephin daily, follow UCx results Patient not comfortable with discharge following stenting No CRYSTAL. BMP continued. (2) Mucocele of appendix: Plan: Without appendicitis Pending lab and possible appendectomy next Tuesday No leukocytosis, no rebound tenderness. Suspect her current flank pain is due to her stone, will follow clinical reassessment. CT on admission does not show adjacent infiltration, imaging is consistent with mucocele which she was already pending laparoscopy and potential appendectomy next Tuesday. General surgery notified of patient inpatient status, no signs of acute appendicitis on admission. Dilation remains stable at 11mm (3) Asthma: Plan: Asthma Patient with no recent hospitalizations, nighttime wheezing, or recent exacerbation however if she misses her Advair does notice this almost immediately with increased wheezing Advair continued Lungs clear on admitting exam Plan Chronic stable issues: Anxiety/depression: Lexapro continued DVT prophylaxis: Low risk, SCDs Disposition: Medical/surgical CODE STATUS: Full code Diet: N.p.o. pending cystoscopy History of Present Illness Primary Care Provider: Genaro Cifuentes MD 43-year-old female with right obstructing ureteral stone, 4 mm with hydro. Patient has a mucocele dilated appendix pending elective appendectomy this g week. She is nontoxic at bedside assessment. UA is infected appearing. Patient has been seen by urology, patient will have stent placement today. As per case complicated with a dilated appendix and pending surgical evaluation as outpatient is recommended for monitoring medical service. Manage seen at the bedside. She reports that she has had worsening right lower quadrant and right mid flank pain much worse in the last 24 hours. Denies fever, chills, sweats. No lightheadedness or dizziness. No dysuria. No vomiting. She is pending surgery next Tuesday for mucocele and possible appe ndectomy. Denies appendicitis. She reports she feels very anxious and is not comfortable with return home postop especially given concern for infection around her stone. Reports she did take her medications today, will need Advair this evening for asthma. She notes her asthma is well-controlled and she has had 3 hospitalizations in the past with none recently but if she does not take her Advair she will have wheezing. Denies recent worsened shortness of breath, cough, sputum production, or wheezing. Denies nighttime wheezing. Medical History: Reviewed Medications: Reviewed Surgical History: Reviewed Family history: Reviewed Allergies: Reviewed Social History: No tobacco/etoh Code Status: Full COde Allergies Allergy/AdvReac Type Severity Reaction Status Date / Time magnesium salicylate Allergy Intermediate migraine Verified 01/20/24 11:14 headache latex Allergy Mild Hives Verified 01/20/24 11:14 tramadol Allergy Mild Shakiness Verified 01/20/24 11:14 paroxetine AdvReac Mild dizzy Verified 01/20/24 11:14 Home Medications Medication Instructions Recorded Confirmed Type escitalopram oxalate 20 mg tablet 30 mg PO QAM 05/24/19 01/25/24 History (Lexapro) fluticasone 250 mcg-salmeterol 50 1 inh inhalation BID 01/12/24 01/25/24 History mcg/dose blistr powdr for inhalation (Advair Diskus) multivitamin 1 tab PO DAILY 01/12/24 01/25/24 History ondansetron 4 mg disintegrating 4 mg PO Q6H PRN nausea and 01/12/24 01/25/24 Rx tablet vomiting #14 tabs oxycodone 5 mg tablet 5 mg PO Q6H PRN pain #14 tabs 01/12/24 01/25/24 Rx tamsulosin 0.4 mg capsule 0.4 mg PO HS 01/20/24 01/25/24 History Past Med/Surg History Medical History Kidney stone Bronchitis hx-age 25 Constipation ongoing Hiatal hernia GERD (gastroesophageal reflux disease) hx-no current issues since sx. Anxiety Asthma daily and prn inh Surgical History Status post Natalia fundoplication (11/07/19) p Robotic-Assisted Laparoscopic Fundoplication; Esophagogastroduodenoscopy Dr. Schmitt 11-07-19 Hx of knee surgery Hx of tubal ligation 2019 History of endometrial ablation History of anesthesia reaction age 16, asthma attack following knee surgery>"no issues since then" History of colonoscopy History of dilatation and curettage 2009 & 2010 History of tonsillectomy 2009 Family History Mother Diabetes Hypertension Stroke Father Heart disease Grandfather Colorectal cancer Social History Smoking Status: Never smoker Second Hand Exposure: Yes (hx growing up); Do You Dip or Chew Tobacco: No; Hx Alcohol Use: No Hx Substance Use: No Preferred Language: Syriac Communication Ability: Effective Cso Required: No Beliefs That Will Affect Care: None marital status: Current Living Situation: Family and Significant Other current occupational status: employed current occupation: teacher How many Children do You have: 1 Feels Safe at Home: Yes Assistive Devices: Contacts and Glasses Physical Exam Physical Exam: General: A&Ox3. NAD. Cooperative. HEENT: Atraumatic, normocephalic. Pulm: CTAB A&P. -wheezes, -rales, -rhonchi. Symmetrical chest rise. No increased work of breathing. No respiratory distress. Cardiac: RRR, -mrg. Radial pulses intact and symmetrical. Abdominal: TTP at LLQ/suprapubic region. no guarding/rebound BS present. Ext: warm, dry Results & Data Results & Data Vital Signs (Past 12 Hours) Vital Signs Temp Pulse Pulse Resp BP BP Pulse Ox 01/25/24 16:37 37.3 C 81 20 136/91 98 01/25/24 16:19 86 19 141/89 H 99 01/25/24 15:55 85 01/25/24 15:45 90 16 141/88 H 99 01/25/24 15:10 84 19 104/89 97 01/25/24 11:39 36.9 C 93 H 18 122/79 98 O2 Del Method 01/25/24 16:37 Room Air 01/25/24 16:19 Room Air 01/25/24 15:55 01/25/24 15:45 Room Air 01/25/24 15:10 Room Air 01/25/24 11:39 Room Air PG Care Time/CCT Total # of Minutes Spent Total Time Spent with Patient: Total time spent is greater than 50% in coordination of care (as documented) at patient's floor/unit and/or counseling patient: Coding Level of Care Code 75809 INT INP/OBS CARE 3/75MIN Diagnoses Hydronephrosis due to obstruction of ureter N13.1 Mucocele of appendix K38.8 Asthma J45.900
[2024-01-25] MEDS ORDERED: ONDANSETRON INJ 2 MG/ML 2 ML VIAL ONE (16:48)
[2024-01-25] MEDS ORDERED: fentaNYL citrate PF 100 MCG/2 ML VIAL IV PRN (17:06)
[2024-01-25] MEDS ORDERED: ONDANSETRON INJ 2 MG/ML 2 ML VIAL IV PRN (17:06)
[2024-01-25] MEDS ORDERED: ePHEDrine sulfate 50 MG/ML AMP IV PRN (17:06)
[2024-01-25] MEDS ORDERED: ATROPINE SULFATE 0.1 MG/ML 10ML SYR IV PRN (17:06)
[2024-01-25] MEDS ORDERED: KETOROLAC 30 MG/ML VIAL ONE (17:30)
--- NOTE | 2024-01-25 17:32 | Operative Report ---
PG Post Operative Report Pre & Post Diagnosis Operation Date: 01/25/24 13:35 Pre-Op Diagnosis: Hydronephrosis due to obstruction of ureter Post-Op Diagnosis: Hydronephrosis due to obstruction of ureter I identified the patient and participated in the time-out.: Yes Procedure Operation Date: 01/25/24 13:35 Actual Procedures p Cystoscopy, Retrograde Pyelogram with radiographic interpretation, Right Stent Placement(Not Applicable) - Baron Matthew MD Surgeon Baron Matthew MD Director Of Accounting None Estimated Blood Loss 2 Findings See Below Redundant proximal ureter with moderate hydronephrosis. Stent in appropriate position end of case. Specimens None Anesthesia Type MAC Complications none None Indications 43-year-old female with distal right ureteral calculus and new urinary specimen concerning for UTI. Description of Procedure After informed consent was obtained, the patient was transported operative suite. MAC anesthesia was induced. The patient was placed in dorsolithotomy position prepped and draped in a sterile fashion. They received preoperative ceftriaxone for antibiotic prophylaxis. An appropriate surgical timeout was performed. A 21 Italian rigid scope was inserted per urethra into the bladder. Giordano cystoscopy revealed no stones or lesions. I turned my attention the right ureteral orifice and intubated this with a 5 Italian open-ended catheter. A right retrograde pyelogram was shot which showed mild hydronephrosis and a redundant proximal ureter. A sensor wire was advanced into the kidney and confirmed fluoroscopically. I had to advance the 5 Italian to straighten out the ureter and get this in place. A 6 Italian by 26 cm right ureteral stent was deployed with a good proximal coil in the renal pelvis. Unfortunately, due to the proximal kinking the distal coil of the stent sucked back up into the right distal ureter. I took a semirigid ureteroscope into the distal ureter and using a basket was able to snare the distal coil and bring this out in the bladder. Spot film showed appropriate curl in the kidney. Good curl in the bladder with the scope. Bladder was emptied and scope was removed. This concluded the end of the case. All counts were correct at the end of the case. I was present, scrubbed, and actively participated for the entirety of the procedure. I attest to the content of the Intraoperative Record and any orders documented therein. Any exceptions are noted below.
--- NOTE | 2024-01-25 18:47 | Anesthesiology Progress Note ---
Date of Service January 25, 2024 Anesthesia Post Procedure Vital Signs Vital Signs: Temp Pulse Pulse Pulse Resp BP BP 01/25/24 18:20 36.6 C 91 H 13 111/73 01/25/24 18:10 89 12 113/75 01/25/24 18:00 96 H 13 107/74 01/25/24 17:50 95 H 16 118/80 01/25/24 17:40 36.8 C 99 H 16 118/75 01/25/24 16:37 37.3 C 81 20 136/91 01/25/24 16:19 86 19 141/89 H 01/25/24 15:55 85 01/25/24 15:45 90 16 141/88 H 01/25/24 15:10 84 19 104/89 01/25/24 11:39 36.9 C 93 H 18 122/79 Pulse Ox O2 Del Method 01/25/24 18:20 98 Room Air 01/25/24 18:10 98 Room Air 01/25/24 18:00 97 Room Air 01/25/24 17:50 98 Room Air 01/25/24 17:40 97 Room Air 01/25/24 16:37 98 Room Air 01/25/24 16:19 99 Room Air 01/25/24 15:55 01/25/24 15:45 99 Room Air 01/25/24 15:10 97 Room Air 01/25/24 11:39 98 Room Air Pain Intensity Right Flank: Pain Intensity: 10 Transfer of Care Handoff Completed per policy Notes Mental Status: alert / awake / arousable Patient Amnestic to Procedure: Yes Nausea / Vomiting: adequately controlled Pain: adequately controlled Airway Patency, RR, SpO2: stable & adequate BP & HR: stable & adequate Hydration State: stable & adequate Anesthetic Complications: no major complications apparent and Pt Satisfied with anesthetic care
[2024-01-25] MEDS ORDERED: ONDANSETRON 4 MG OD TAB PO PRN (18:53)
[2024-01-25] MEDS ORDERED: MoRPHine SULFATE 2 MG/ML CARP IV PRN (18:53)
--- NOTE | 2024-01-25 19:19 | Fluoroscopy Report ---
FL retrograde includes kub CLINICAL HISTORY: CYSTO COMPARISON STUDY: Abdomen and pelvis CT 01/25/2024. FLUOROSCOPY TIME: 16 seconds FLUOROSCOPY IMAGES: 4 Ka,r: 3.5 mGy FINDINGS: Retrograde opacification of the right renal collecting system followed by placement of a ri ght ureteral stent. Only the proximal portion of the stent is identified and appears in good position . This is located at the dilated right renal pelvis/ureteropelvic junction. Right-sided hydronephrosi s is noted. IMPRESSION: Fluoroscopic assistance as above. ACT 112: Negative or not required by law. Electronically signed by: Betito Garcia M.D. 01/25/2024 7:17 PM
[2024-01-25] MEDS: Patient's HEIGHT &/or WEIGHT Needed SCH (20:57)
[2024-01-25] MEDS: TAMSULOSIN HCL 0.4 MG CAP PO SCH (21:50)
--- OUTSIDE RECORDS SUMMARY | 2024-01-25 23:38 | External Medical Summary | Continuity of Care Document ---
Author Name Unknown Organization [address] [id number] Care Team Providers Care In Home Sales Consultant Name Role Phone Genaro Cifuentes Primary Care Physician [phone] [facility]counter [id number] Date(s): 01/18/24 - 01/18/[address] [address] [phone] Encounter Diagnosis Right flank pain(Discharge Diagnosis) - 01/19/24 Discharge Disposition: Home or Self Care Attending Physician: KRISTOPHER Nicole Danielle B Allergies, Adverse Reactions, Alerts Substance Reaction Severity Status Paxil irritable Active Latex Itching Active MSG (Monosodium Glutamate) unknown A ctive traMADol stomach upset Active Assessment and Plan Extracted from: Title:Acute Visit Note Author:KRISTOPHER Nicole Dani elle B Date:01/18/24 1.Right flank pain -Right 4 mm obstructing stoneand appendiceal mucoceleseen onCT. Patient hasappointment with general surgery for appendix tomorrowand follow-up with urology on 02/01. She continues to takeoxycodone as needed and Flomax. Pain is well-controlled outside of somebreakthrough pain;hasneeded to take oxycodone twice. -Follow-up if symptoms worsen or fail to improve. -Patient verbalizes understanding regarding plan of care and all questions answered. Immunizations Given and Recorded Vaccine Date Status Refusal Reason influenza virus vaccine, inactivated 08/04/21 Give n influenza virus vaccine, inactivated 08/03/17 Eligio rded influenza virus vaccine, inactivated 07/28/15 Give n influenza virus vaccine, inactivated 09/07/13 Give n influenza virus vaccine, inactivated 11/01/12 Give n tetanus/diphtheria/pertuss, acel (Tdap) 11/01/12 G iven Medications Advair Diskus 250 mcg-50 mcg Start: 03/01/23 10:18:00 EDT, See Instructions, Disp# 180 blister, Refills: 3, USE 1 INHALATION TWICE A DAY, Pharmacy: [facility] Start Date: 03/01/23 Status: Ordered ALPRAZolam 0.5 mg oral tablet Start: 04/04/23 17:05:00 EDT, See Instructions, Disp# 2 tab, Refills: 0, Take one tablet 30 minutesprior to air travel prn., Pharmacy: [id number] Start Date: 04/04/23 Status: Ordered Cipro 500 mg oral tablet Start: 04/15/23 10:15:00 EDT, 1 tab, PO, q12h, Disp# 14 tab, Pharmacy: [id number] Start Date: 04/15/23 Stop Date: 04/22/23 Status: Ordered escitalopram 10 mg oral tablet Start: 08/23/23 19:37:00 EST, 3 tab, PO, Daily, Disp# 90 tab, Refills: 10, Pharmacy: [facility] Start Date: 08/23/23 Status: Ordered Flomax 0.4 mg oral capsule Start: 01/18/24 7:36:00 EDT, 1 cap, PO, Daily Start Date: 01/18/24 Status: Ordered oxyCODONE 5 mg oral tablet Start: 01/18/24 7:36:00 EDT, 1 tab, PO, q6h, Refills: 0, PRN: as needed for pain Start Date: 01/18/24 Status: Ordered Ventolin HFA 90 mcg/inh inhalation aerosol See Instructions, Disp# 18 g, Refills: 2, INHALE TWO PUFFS BY MOUTH 4 TIMES DAILY NEEDED FOR WHEEZING , Pharmacy: [id number] Start Date: 09/18/21 Status: Ordered Vitamin D3 2000 intl units oral capsule Start: 01/16/16 9:37:00, See Instructions, Disp# 100 cap, 4000IU daily, other Start Date: 01/16/16 Status: Ordered Mental Status 01/18/24 Barriers to Learning one year None evide nt Mandatory Health Literacy Documentation Yes Health Literacy Communication Barriers N ever Primary Language Greenlandic Problem List Condition Confirmation Course Effective Dates Status H ealth Status Informant Change in bowel habits Confirmed Active Anxiety Confirmed Active ASTHMA Confirmed Active Atypical nevi Confirmed Active CONSTIPATION Confirmed Active Constipation Confirmed Active Depression Confirmed Active Dysphagia Confirmed Active ENDOMETRIOSIS Confirmed Active FAMILY HISTORY OF OTHER SPECIFIED MALIGNANT NEOPLASM 1 Confirmed Active GERD (gastroesophageal reflux disease) Confirmed Active Hemorrhoids Confirmed Active Hiatal hernia Confirmed Active Interstitial cystitis Confirmed Active IBS (irritable bowel syndrome) Confirmed Active Vitamin D deficiency Confirmed Active Weight disorder Confirmed Active 1mother and sister had bcc. Diagnosis Diagnosis Type Effective Dates Health Status Cl inical Service Informant Right flank pain Discharge Diagnosis 01/19/24 Procedures Procedure Date Related Diagnosis Body Site Status Mammogram 1 08/01/23 Completed Mammogram - screening 2 07/29/22 C ompleted US EXAM PELVIC LIMITED 3 08/12/21 Completed Diagnostic mammogram 4 07/28/21 Co mpleted Mammogram - screening 5 07/22/21 C ompleted Mammogram 6 07/18/[address] 7 02/11/20 Completed CXR - Chest X-ray 8 02/08/20 Compl eted Ultrasound scan of upper abdomen 9 02/08/20 Completed Fundoplication 10 11/07/19 Complet ed Evaluation of test results 11 11/01/19 Completed Medical records review 12 11/01/19 Completed Esophagogastroduodenoscopy 13, 14 08/31/19 Completed D&C - Dilatation and curettage 06/14/19 Completed Endometrial ablation 06/14/19 Comp leted Hysteroscopy 06/14/19 Completed MRI of brain with contrast 15 12/07/18 Completed Abdomen and pelvis 16 11/27/17 Com pleted Emergency department patient visit 17 11/27/17 Completed Ultrasound scan of pelvis 18 11/27/17 Completed Colonoscopy 19 02/26/16 Completed Colonoscopy 20 02/26/16 Completed Esophagogastroduodenoscopy 21, 22 02/26/16 Completed Tubal ligation 07/03/15 Completed Colonoscopy 23 08/30/11 Completed D&C - Dilatation and curettage Completed Tonsillectomy and adenoidectomy Completed Upper gastrointestinal tract series 24 Completed [facility] [facility] Completed 1Impression: There is no mammographic evidence of malignancy. A 1 year screening mammogram is recommended 2Impression: There is no mammographic evidence of malignancy. A 1 year screening mammogram is recommended. (07/30/2023) The patient will receive written notification of the results. 3unremarkable pelvic ultrasound 4The right breast asymmetry effacwes on the additional mammographic views, and is benign and consistent with normal fibroglandular tissue. There is no mammographic evidence of malignancy in the right breast. A 1 year screening mammogram is recommended. 5The 6 mm asymmetry with questionable associated architectural distortion in the right breast, alongthe posterior nipple line on the MLO view, needs additional evaluation. 6ACR BI Rads Cat 1 Negative. There is no mammographic evidence of malignancy . 1 year screen recommended 7Unremarkable CT of the chest. 8No acute cardiopulmonary disease 9No cholelithiasis or biliary ductal dilatation. 10Robotic-Assisted Laparoscopic Fundoplication. 11[facility] BMP K 3.4 L, CBC normal. 12DR [facility] OV reviewed. He is planning robot assisted laprasocopic [place] fundoplication. 13Pathology results: negative for H. pylori. Gastritis. F/U as scheduled. 14EGD 5 cm HH, antral erythema bx, 2nd duod nl bx, tortousos esophagus, random bx mid and distal esophagus 151. No acute intrascranial abnormality or abnormal enhancement 2. Paranasal sinus disease as above. 3. Moderate hypertrophy of the adenoid tonsils. 16No significant abnormality identified within the abdomen and pelvis. Normal appendix. 17[facility] Reviewed ER report from 11/27/17. Presented with lower abd pain. CT a/p report from normal. U/Sof pelvis normal. CBC normal, lipase normal CMP gluc 158, K 3.4. 181. Retroflexed uterus. 2. Otherwise negative pelvic ultrasound. 19The entire examined colon is normal on direct and retroflexion views. No specimens collected. Pt. to return to GI office in 1 month Titrate Miralax to desired effect. 20COLO to cecum normal. 21EGD small gastric polyp body biopsy, grade A esophagitiis bx, 5 cm HH 22path fundic gland polyp, GE inflammation, lymphoid hyperplasia 23COLO to TI by Dr Araujo normal. 24Barium swallow ordered by DR Schmitt, 12 cm HH, mild gerd, distal esoph spasm. Vital Signs Most recent to oldest [Reference Range]: 1 Height 167.2 cm (01/18/24 7:36 AM) Patient Weight 81.7 kg (01/18/24 7:36 AM) Body Mass Index 29.22 kg/m2 (01/18/24 7:36 AM) Heart Rate 96 bpm (01/18/24 7:36 AM) Respiratory Rate 18 br/min (01/18/24 7:36 AM) Blood Pressure 106/82mmHg (01/18/24 7:36 AM) Social History Social History Type Response Smoking Status Never smoked cigaret milagros Sex FCM Outpt Note * KRISTOPHER Nicole Danielle B: PERFORM Event Display: FCM Outpt Note Authored Date: [id number] Chief Complaint ER f/u- kidney stones and appendix needs to come out. Appointment with surgeon tomorrow. Urology 02/01/24. History of Present Illness is a 43-year-old female patient of Dr. Cifuentes here for ER follow-up. Patient states on01/11 she went to the ER for right lower quadrant and flank pain. CT abdomen pelvis showed 4 mm obstructing stonein right ureter andappendicealmucocele. Patient was prescribedoxycodone andFlomax and it was felt she could be treated as outpatient. Today, patient states she is feelingwell. Patient is well-managed outside of someintermittent breakthrough pain.She has an appointment with urologyon 02/01and general surgery tomorrowfor consulton her appendix.Patient states she is not sure if she passed the stone yet. Continues to take oxycodone and Flomax; has taken 2 tabletsof oxycodoneand was given 14 in the ER. Denies fever,nausea, vomitingdecreased urine. Review of Systems Negative unless stated in HPI. Physical Exam Vitals & Measurements HR:96(Monitored) RR:18 BP:106/82 SpO2:98% HT:167.2cm WT:81.7kg WT:81.700kg(Dosing) BMI:29.22 PHQ2 Data(Data Documented on:01/18/2024 07:36) Emotional health assessment NEGATIVE CONSTITUTIONAL: Well-developed, well nourished. No acute distress. NEUROLOGICAL: Patient alert, orientated, memory intact. Gait steady. LUNGS: Respirations even and unlabored, chest expansion symmetrical. Lung sounds clear in all lobes, no wheezing, crackles, or adventitious breath sounds. HEART: Rate and rhythm regular. No cardiac murmur, click, or rub noted. ABDOMEN: Bowel sounds active in all four quadrants. Tender in RLQ and along right flank. MUSCULOSKELETAL/EXTREMITIES: Extremities are intact, no redness or edema noted of upper or lower extremity. INTEGUMENTARY: Skin dry, warm to touch. No rash, wounds, lesions noted on visible skin. PSYCHOSOCIAL: Calm and cooperative, interacts appropriately with staff. Assessment/Plan 1.Right flank pain -Right 4 mm obstructing stoneand appendiceal mucoceleseen onCT. Patient hasappointment with general surgery for appendix tomorrowand follow-up with urology on 02/01. She continues to takeoxycodone as needed and Flomax. Pain is well-controlled outside of somebreakthrough pain;h asneeded to take oxycodone twice. -Follow-up if symptoms worsen or fail to improve. -Patient verbalizes understanding regarding plan of care and all questions answered. Problem List/Past Medical History Ongoing Anxiety ASTHMA Atypical nevi Change in bowel habits CONSTIPATION Constipation Depression Dysphagia ENDOMETRIOSIS FAMILY HISTORY OF OTHER SPECIFIED MALIGNANT NEOPLASM GERD (gastroesophageal reflux disease) Hemorrhoids Hiatal hernia IBS (irritable bowel syndrome) Interstitial cystitis Vitamin D deficiency Weight disorder Historical Palpitation Right sided abdominal pain Viral URI Vomiting Procedure/Surgical History Mammogram| Service Date: 08/01/2023Mammogram - screening| Service Date: 07/29/2022US EXAM PELVIC LIMITED| Service Date: 08/12/2021iagnostic mammogram| Service Date: 07/28/2021Mammogram - screening| Service Date: 07/22/2021Mammogram| Service Date: 07/18/2020Chest CT| Service Date: 02/11/2020CXR - Chest X-ray| Service Date: 02/08/2020Ultrasound scan of upper abdomen| Service Date: 02/08/2020Fundoplication| Service Date: 11/07/2019Medical records review| Service Date: 11/01/2019Evaluation of test results| Service Date: 11/01/2019Esophagogastroduodenoscopy|Service Date: 08/31/2019Endometrial ablation| Service Date: 06/14/2019Hysteroscopy| Service Date: 06/14/2019 D&C - Dilatation and curettage| Service Date: 06/14/2019 MRI of brain with contrast| Service Date: 12/07/2018Ultrasound scan of pelvis| Service Date: 11/27/2017Abdomen and pelvis| Service Date: 11/27/2017Emergency department patient visit| Service Date: 11/27/2017C olonoscopy| Service Date: 02/26/2016Colonoscopy| Service Date: 02/26/2016Esophagogastroduodenoscopy| Service Date: 02/26/2016Tubal ligation| Service Date: 07/03/2015Colonoscopy| Service Date: 08/30/2011 [facility] D&C - Dilatation and curettage Tonsillectomy and adenoidectomyUpper gastrointestinal tract series Medications albuterol(Ventolin HFA 90 mcg/inh inhalation aerosol), See Instructions ALPRAZolam(ALPRAZolam 0.5 mg oral tablet), See Instructions cholecalciferol(Vitamin D3 2000 intl units oral capsule), See Instructions ciprofloxacin(Cipro 500 mg oral tablet), 500 mg= 1 tab, PO, q12h escitalopram(escitalopram 10 mg oral tablet), 3 tab, PO, Daily fluticasone-salmeterol(Advair Diskus 250 mcg-50 mcg), See Instructions oxyCODONE(oxyCODONE 5 mg oral tablet), 5 mg= 1 tab, PO, q6h, PRN tamsulosin(Flomax 0.4 mg oral capsule), 0.4 mg= 1 cap, PO, Daily Allergies LatexItching MSG (Monosodium Glutamate)unknown Paxilirritable traMADolstomach upset Social History Smoking Status Never smoked cigarettes Alcohol - Denies Alcohol Use Exercise - Regular exercise Exercise type:Walking, Aerobics, Yoga Tobacco - Denies Tobacco Use Family History Anemia: Mother. Anxiety: Mother. Constipation...: Daughter. Depression.: Mother. Diabetes: Mother. Gastrointestinal ulcer: Mother. Heart attack: Father. Heart disease: Father. High Blood Pressure: Father. Hyperlipidemia..: Father. Thyroid disease: Mother. Health Status Family Member(s) Immunizations Vaccine Date Status influenza virus vaccine, inactivated 08/04/2021 Given influenza virus vaccine, inactivated 08/03/2017 Recorded influenza virus vaccine, inactivated 07/28/2015 Given influenza virus vaccine, inactivated 09/07/2013 Given tetanus/diphtheria/pertuss, acel (Tdap) 11/01/2012 Given influenza virus vaccine, inactivated 11/01/2012 Given Recommendations Health Maintenance Pending(in the next year) OverDue Adult Influenza Vaccine due04/15/23and every 1year Due Adult COVID-19 Vaccination due01/19/24Unknown Frequency Adult Folic Acid Supplementation due01/19/24and every 3year Adult Social Determinants of Health Screening due01/19/24Unknown Frequency Adult Tdap/Td Vaccine due01/19/24Unknown Frequency Satisfied(in the past 1 year) Satisfied Body Mass Index on01/18/24.Satisfied by TAMEKA Boogie Jenna Electronic Signature on File Electronically Reviewed/Signed by: KRISTOPHER [place] Author Signature Dt/Tm:01/19/2024 07:35 AM Family Medicine Electronically Reviewed/Signed by: Genaro Cifuentes MD Cosigner Signature Dt/Tm: 01/20/2024 11:40 AM Department of Family Medicine [facility] Patient Care team information Care Team Personnel Name: KRISTOPHER Damon Tara Position: Nurse Pract - Family Med Member Role: Lifetime Relationship Address: Address: [address] [place] [address] Name: MD Cifuentes Juan Position: Physician - Family Med Member Role: Lifetime Relationship Address: Address: [address] [place] [id number] [place] Care Team Related Persons Name: IBIS ZAMORA Address: [place] Address: home [address], [place] [phone] Name: JACKIE HALE Address: home [address] [place], [place] [phone] Name: GAYE TORREZ Address: home [address] [place] [address]"
[2024-01-26] MEDS: ONDANSETRON INJ 2 MG/ML 2 ML VIAL IV PRN (03:18)
[2024-01-26] MEDS: LACTATED RINGER'S 1,000 ML IV ONE (03:25)
[2024-01-26] MEDS: ACETAMINOPHEN 325 MG TAB PO PRN (04:02)
[2024-01-26] MEDS: LACTATED RINGER'S 1,000 ML IV SCH (04:23)
[2024-01-26 06:49] LABS: Basophils # (auto) 0.02 K/uL (0.00-0.20); Basophils % (auto) 0.2 %; Eosinophils # (auto) 0.12 K/uL (0.00-0.50); Eosinophils % (auto) 1.4 %; Hematocrit (blood only) 34.9 % (37.0-47.0); Hemoglobin 11.5 g/dl (12.0-16.0); Immature Granulocytes # (auto) 0.03 K/uL (0.01-0.20); Immature Granulocytes % (auto) 0.4 %; Lymphocytes # (auto) 1.79 K/uL (1.20-3.40); Lymphocytes % (auto) 21.6 %; Mean Corpuscular Hemoglobin 29.9 pg (25.0-34.0); Mean Corpuscular Volume 90.9 fL (80.0-100.0); Mean Platelet Volume 9.6 fL (9.4-12.4); Monocytes # (auto) 0.61 K/uL (0.11-0.59); Monocytes % (auto) 7.3 %; Neutrophils # (auto) 5.73 K/uL (1.40-6.50); Neutrophils % (auto) 69.1 %; Platelet Count 275 K/uL (130-400); RDW Coefficient of Variation 12.5 % (11.5-14.5); RDW Standard Deviation 41.1 fL (36.4-46.3); Red Blood Count 3.84 M/uL (4.20-5.40)
[2024-01-26 07:11] LABS: BUN Creatinine Ratio 13.6 (10-20); Calcium 8.5 mg/dl (8.6-10.3); Creatinine Clr Calc Pharmacy 116.8 ml/min; Est GFR (African American) 125.4 ml/min; Est GFR (Non-African American) 108.2 ml/min; Potassium 3.6 mmol/L (3.5-5.1)
--- NOTE | 2024-01-26 07:51 | Urology Progress Note ---
Date of Service January 26, 2024 Assessment & Plan (1) Hydronephrosis due to obstruction of ureter: (2) Ureterolithiasis: Plan: - Pt POD#1 s/p cystoscopy, retrograde pyelogram and right ureteral stent placement - Afebrile, low BPs earlier this morning, now improved - Subjectively feeling better at time of visit - Lab work reviewed - creatinine 0.66, WBC 8.3 - Urine and blood cultures are pending - Continue broad-spectrum antibiotics and narrow per sensitivity data when available - Tolerating right ureteral stent with minimal bother - Okay to d/c from perspective when medically stable - Recommend d/c with course of PO antibiotics, Tamsulosin, prn Pyridium and prn pain medication for stent management - Expected clinical course reviewed, all questions answered - Will arrange outpatient follow-up with our service Admission and Anticipated Discharge Date Admission Date: January 25, 2024 Subjective Patient seen and examined at bedside this morning She reports "rough" night [place] poorly with low blood pressures, lightheaded when trying to get out of bed Notes dark urine with little urine output overnight, but now improved No abdominal pain Reports some flank discomfort with void Voiding spontaneously, notes some ongoing incontinence No hematuria Denies nausea, vomiting, fever or chills Review of Systems Constitutional: as per Subjective / HPI Gastrointestinal: as per Subjective / HPI Genitourinary: as per Subjective / HPI Physical Exam Constitutional: well developed and well nourished; no acute distress Respiratory: normal respiratory effort; no respiratory distress and no labored breathing Gastrointestinal (Abdomen): Inspection/Auscultation: abdomen normal to inspection Musculoskeletal: Head/Neck/Chest: normocephalic Neurologic: moves all extremities and awake Psychiatric: Orientation: alert and oriented x 3 Results & Data Vital Signs (Past 12 Hours) Vital Signs Temp Pulse Pulse Resp BP Pulse Ox O2 Del Method 01/26/24 07:28 36.9 C 85 18 100/66 96 Room Air 01/26/24 05:56 36.7 C 84 16 118/78 95 Room Air 01/26/24 03:35 112/65 01/26/24 03:25 71 98/66 L 01/26/24 03:19 36.7 C 50 L 74/31 L 98 Room Air 01/25/24 22:42 36.8 C 92 H 16 101/61 97 Room Air 01/25/24 20:49 36.8 C 99 H 18 101/61 97 Room Air 01/25/24 20:17 36.6 C 100 H 18 121/77 97 Room Air PG Care Time/CCT Total # of Minutes Spent Total Time Spent with Patient: Total time spent is greater than 50% in coordination of care (as documented) at patient's floor/unit and/or counseling patient: Coding Level of Care Code 80037 SUB INP/OBS CARE 11/10MIN Diagnoses Hydronephrosis due to obstruction of ureter N13.1 Ureterolithiasis N20.1
[2024-01-26] MEDS: ESCITALOPRAM OXALATE 10 MG TAB PO SCH (08:24)
[2024-01-26] MEDS: MULTIVITAMIN TAB PO SCH (08:26)
[2024-01-26] MEDS: FLUTICASONE/VILANTEROL 200/25MCG 14 PUFFS/INHALER INH SCH (08:26)
[2024-01-26] MEDS: FLUTICASONE/SALMETEROL 250/50 (ADVAIR) 14 PUFF/1 INHALER INH SCH (09:53)
[2024-01-26] MEDS ORDERED: PHENAZOPYRIDINE HCL 100 MG TAB PO PRN (10:26)
[2024-01-26] MEDS: oxyBUTYnin chloride 5 MG TAB PO STA (11:01)
--- NOTE | 2024-01-26 12:08 | Hospitalist Progress Note ---
Date of Service January 26, 2024 Assessment & Plan (1) Hydronephrosis due to obstruction of ureter: Plan: Ureterolithiasis with hydronephrosis Cystoscopy, retrograde pyelogram, and right ureteral stent placement with urology on 01/25/2024. Continue Rocephin daily. Follow UCx -- preliminary results show no growth. Continue scheduled Oxybutynin and Pyridium [place] 5 mg Q6H PRN for pain Urology recommends upon discharge: course of p.o. antibiotics, tamsulosin, as needed Pyridium, and as needed pain medication for stone management. They will arrange outpatient follow-up with their service. (2) Mucocele of appendix: Plan: Without appendicitis Pending lab and elective appendectomy next Tuesday CT on admission does not show adjacent infiltration, imaging is consistent with mucocele which she was already pending laparoscopy and potential appendectomy next Tuesday. General surgery notified of patient inpatient status, no signs of acute appendicitis on admission. Dilation remains stable at 11mm. No leukocytosis, no rebound tenderness. (3) Asthma: Plan: Patient with no recent hospitalizations, nighttime wheezing, or recent exacerbation. However if she misses her Advair, she does notice this almost immediately with increased wheezing. Advair continued Plan Chronic stable issues: Anxiety/depression: Lexapro continued DVT prophylaxis: Low risk, SCDs CODE STATUS: Full code Admission and Anticipated Discharge Date Admission Date: January 25, 2024 Subjective Patient seen and evaluated at bedside. She reports that she felt poorly due to hypotension overnight. She states she feels better this morning compared to last night. She reports some urinary incontinence, urinary hesitancy, and some right sided flank pain. Patient reports her appetite has improved. Denies hematuria, lightheadedness, nausea, vomiting, fever, chills, shortness of breath, or chest pain. Physical Exam Physical Exam: General: No acute distress, nondiaphoretic, well-developed, well-nourished. Skin: The skin was without rashes, erythema, edema, or bruising. Cardiac: Regular rate and rhythm without murmurs gallops or rubs. Pulm: Clear to auscultation bilaterally without wheezes, rales or rhonchi. No retractions or accessory muscle use. Abdominal: Positive bowel sounds x 4. Minimal tenderness to palpation in suprapubic region. Soft, without masses or organomegaly. No guarding or rebound tenderness. Neuro: A&O x3. No focal neurological deficits. Results & Data Results & Data Vital Signs (Past 12 Hours) Vital Signs Temp Pulse Pulse Resp BP Pulse Ox O2 Del Method 01/26/24 10:38 102/66 01/26/24 07:28 36.9 C 85 18 100/66 96 Room Air 01/26/24 05:56 36.7 C 84 16 118/78 95 Room Air 01/26/24 03:35 112/65 01/26/24 03:25 71 98/66 L 01/26/24 03:19 36.7 C 50 L 74/31 L 98 Room Air Laboratory Results Reviewed CBC Reviewed chemistries Reviewed urine culture Reviewed blood cultures PG Care Time/CCT Total # of Minutes Spent Total Time Spent with Patient: Total time spent is greater than 50% in coordination of care (as documented) at patient's floor/unit and/or counseling patient: Coding Level of Care Code 87120 SUB INP/OBS CARE 2/35MIN Diagnoses Hydronephrosis due to obstruction of ureter N13.1 Mucocele of appendix K38.8 Asthma J45.909
[2024-01-26] MEDS: cefTRIAXone SODIUM 1,000 MG in DEXTROSE 5 % MINI-B 50 ML IV SCH (15:42)
[2024-01-26] MEDS: HYDROCODONE/ACETAMOPHEN 5/325MG TAB PO PRN (19:24)
[2024-01-26] MEDS: oxyBUTYnin chloride 5 MG TAB PO SCH (21:21)
[2024-01-26] MEDS: PHENAZOPYRIDINE HCL 100 MG TAB PO SCH (21:21)
[2024-01-27 07:12] LABS: Basophils # (auto) 0.03 K/uL (0.00-0.20); Basophils % (auto) 0.5 %; Eosinophils # (auto) 0.16 K/uL (0.00-0.50); Eosinophils % (auto) 2.6 %; Hematocrit (blood only) 33.9 % (37.0-47.0); Hemoglobin 11.1 g/dl (12.0-16.0); Immature Granulocytes # (auto) 0.01 K/uL (0.01-0.20); Immature Granulocytes % (auto) 0.2 %; Lymphocytes # (auto) 1.94 K/uL (1.20-3.40); Lymphocytes % (auto) 31.1 %; Mean Corpuscular Hemoglobin 29.8 pg (25.0-34.0); Mean Corpuscular Hgb Conc 32.7 g/dL (32.0-36.0); Mean Corpuscular Volume 91.1 fL (80.0-100.0); Mean Platelet Volume 9.7 fL (9.4-12.4); Monocytes # (auto) 0.42 K/uL (0.11-0.59); Monocytes % (auto) 6.7 %; Neutrophils # (auto) 3.67 K/uL (1.40-6.50); Neutrophils % (auto) 58.9 %; Platelet Count 242 K/uL (130-400); RDW Coefficient of Variation 12.4 % (11.5-14.5); RDW Standard Deviation 41.5 fL (36.4-46.3); Red Blood Count 3.72 M/uL (4.20-5.40); White Blood Count 6.23 K/ul (4.8-10.8)
[2024-01-27 07:35] LABS: BUN Creatinine Ratio 10.5 (10-20); Calcium 8.6 mg/dl (8.6-10.3); Creatinine Clr Calc Pharmacy 135.3 ml/min; Est GFR (African American) 131.6 ml/min; Est GFR (Non-African American) 113.5 ml/min; Potassium 3.7 mmol/L (3.5-5.1)
--- NOTE | 2024-01-27 14:30 | Discharge Summary ---
Date of Service January 27, 2024 Admission HPI Per Admitting Provider 43-year-old female with right obstructing ureteral stone, 4 mm with hydro. Patient has a mucocele dilated appendix pending elective appendectomy this coming week. She is nontoxic at bedside assessment. UA is infected appearing. Patient has been seen by urology, patient will have stent placement today. As per case complicated with a dilated appendix and pending surgical evaluation as outpatient is recommended for monitoring medical service. Manage seen at the bedside. She reports that she has had worsening right lower quadrant and right mid flank pain much worse in the last 24 hours. Denies fever, chills, sweats. No lightheadedness or dizziness. No dysuria. No vomiting. She is pending surgery next Tuesday for mucocele and possible appendectomy. Denies appendicitis. She reports she feels very anxious and is not comfortable with return home postop especially given concern for infection around her stone. Reports she did take her medications today, will need Advair this evening for asthma. She notes her asthma is well-controlled and she has had 3 hospitalizations in the past with none recently but if she does not take her Advair she will have wheezing. Denies recent worsened shortness of breath, cough, sputum production, or wheezing. Denies nighttime wheezing. Medical History: Reviewed Medications: Reviewed Surgical History: Reviewed Family history: Reviewed Allergies: Reviewed Social History: No tobacco/etoh Code Status: Full COde Admission Exam Per Admitting Provider General: A&Ox3. NAD. Cooperative. HEENT: Atraumatic, normocephalic. Pulm: CTAB A&P. -wheezes, -rales, -rhonchi. Symmetrical chest rise. No increased work of breathing. No respiratory distress. Cardiac: RRR, -mrg. Radial pulses intact and symmetrical. Abdominal: TTP at LLQ/suprapubic region. no guarding/rebound BS present. Ext: warm, dry Principal Diagnosis Ureterolithiasis with hydronephrosis Discharge Exam General: No acute distress, nondiaphoretic, well-developed, well-nourished. Skin: The skin was without rashes, erythema, edema, or bruising. Cardiac: Regular rate and rhythm without murmurs gallops or rubs. Pulm: Clear to auscultation bilaterally without wheezes, rales or rhonchi. No retractions or accessory muscle use. Abdominal: Positive bowel sounds x 4. Minimal tenderness to palpation in suprapubic region. Soft, without masses or organomegaly. No guarding or rebound tenderness. Neuro: A&O x3. No focal neurological deficits. Discharge Data Allergies Allergy/AdvReac Type Severity Reaction Status Date / Time magnesium salicylate Allergy Intermediate migraine Verified 01/20/24 11:14 headache latex Allergy Mild Hives Verified 01/20/24 11:14 tramadol Allergy Mild Shakiness Verified 01/20/24 11:14 paroxetine AdvReac Mild dizzy Verified 01/20/24 11:14 Consultations 01/25/24 16:08 ED Decision to Admit Stat Procedures Performed Operation Date: 01/25/24 13:35 Actual Procedures p Cystoscopy, Retrograde Pyelogram, Right Stent Placement(Not Applicable) - Baron Matthew MD Ordered Studies 01/25/24 FL retrograde includes kub Routine 01/25/24 13:16 CT abd pelvis IV con only Stat Hospital Course (1) Hydronephrosis due to obstruction of ureter: Presented with ureterolithiasis with hydronephrosis. Cystoscopy, retrograde pyelogram, and right ureteral stent placement with urology on 01/25/2024. Received Rocephin for empiric coverage for UTI. Urine culture was negative so no antibiotics were necessary upon discharge. Upon discharge, continue scheduled Tamsulosin, and as needed Pyridium, Oxybutynin, and [place]. 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 CT on admission does not show adjacent infiltration, imaging is consistent with mucocele which she was already pending laparoscopy and potential appendectomy on 01/31/24. General surgery notified of patient inpatient status, no signs of acute appendicitis on admission. Dilation remains stable at 11mm. No leukocytosis, no rebound tenderness. (3) Asthma: Patient with no recent hospitalizations, nighttime wheezing, or recent exacerbation. However if she misses her Advair, she does notice this almost immediately with increased wheezing. Advair continued Plan Chronic stable issues: Anxiety/depression: Lexapro continued CODE STATUS: Full code Total Time Total Time Spent Total Time Spent (In Minutes): Greater than 30 minutes spent completing this discharge process including direct patient care, medication reconciliation, documentation, review of labs and images, and coordination of care. Discharge Plan Discharge Items Patient Disposition: Home - Self-Care Reason For Visit: OBSTRUCTING NEPHROLITHIASIS WITH UTI Discharge Diagnosis: Ureterolithiasis with hydronephrosis Activity: As commented below Activity Comment: Follow any activity limitations as described by your urology team Non-emergency contact: Primary Care Provider and Urologist Call non-emergency contact if: you have any medication questions and your symptoms worsen Follow-up/Referrals: Genaro Cifuentes MD [Primary Care Provider] - Diet: Regular Addtl Attending Provider Instructions: Mrs. Denton, Marcus were admitted to the hospital because of an obstructing stone in your right urethra and subsequently hydronephrosis (swelling of the kidney). This is what caused your acute right sided flank pain. While you are in the hospital, you had a cystoscopy, retrograde pyelogram, and right sided ureteral stent placement with urology. You will continue to follow with urology outpatient for stone ma nagement and stent removal. You are on antibiotics while inpatient due to a suspected urinary tract infection (UTI). However, your urine culture came back negativemeaning you do not have a UTI. Therefore, you do not need an antibiotic prescription upon discharge. While you have the ureteral stent, some discomfort is normal. You may also feel mild soreness or pressure before during urination. The symptoms will go away few days after the stent is removed. Continue to drink plenty of fluids to help flush out your urinary tract. Your urine may be slightly pink or red. This is due to bleeding caused by minor irritation from the stent. This may have been on and off while you have the stent. Upon discharge from the hospital: * Continue Flomax (tamsulosin). This assist in the passage of kidney stones by increasing urinary fluid volume and pressure, as well as relaxing smooth muscle in the ureters. * Take Pyridium as needed. This helps alleviate urinary symptoms such as dysuria, pain, burning sensations, urgency, and frequency. * Take [place] as needed. This is a combination pain medication of hydrocodone and acetaminophen. * Take oxybutynin as needed. This is an antispasmodic medicine that helps decrease muscle spasms of the bladder. * Continue all other medications as prescribed. Your new prescriptions have been sent to your [facility] pharmacy. * Follow-up with urology outpatient. Their office will call you with your appointment details. * Proceed with your appendectomy as scheduled. General surgery should be in contact with you with the details for your upcoming appendectomy on 01/31/2024. Please contact your PCP or urologist if you experience any of the following: You have pain that is not relieved with medicine, urine contains large amounts of blood, symptoms similar to those you had before the stent was placed, or if the end of the stent comes out of your urethra. Please return to the hospital if you experience any of the following: You have a fever of 100.4 or higher, chills, nausea or vomiting, lightheadedness, dizziness, passing out, shortness of breath, or chest pain. It was a pleasure taking care of you while you were in the hospital, Ban Cheng PA-C Pending Studies at Discharge: No Stand-Alone Forms: My [facility] [address] [facility], Pain - Opioid Pain Management, Smoking Cessation Medications and DC Order Prescriptions: New hydrocodone-acetaminophen 5-325 mg Tablet 1 tab PO Q6H PRN (Reason: pain) Qty: 28 0RF phenazopyridine [Pyridium] 100 mg Tablet 100 mg PO TID PRN (Reason: Dysuria) Qty: 30 0RF oxybutynin chloride 5 mg Tablet 5 mg PO BID PRN (Reason: Bladder spasms) Qty: 14 0RF Continued escitalopram oxalate [Lexapro] 20 mg Tablet 30 mg PO QAM tamsulosin 0.4 mg capsule 0.4 mg PO HS Qty: 30 0RF multivitamin Tablet 1 tab PO DAILY fluticasone propion-salmeterol [Advair Diskus] 250-50 mcg/dose blister with device 1 inh INHALATION BID ondansetron 4 mg tablet,disintegrating 4 mg PO Q6H PRN (Reason: nausea and vomiting) Qty: 14 0RF oxycodone 5 mg tablet 5 mg PO Q6H PRN (Reason: pain) Qty: 14 0RF Discharge Orders: Discharge Order (Routine); Ordered 01/27/24 Ordered By: Ban Eli/Other Patient Handouts: Preventing Deep Vein Thrombosis, Having a Ureteral Stent Admission Data Admit Date/Time: 01/25/24 17:07 Attending Provider: Tyrone Saul Admit Provider: Efren Silva Primary Care Provider: Genaro Cifuentes Other Providers: Efren Silva Other Interventions: Discharge Summary Assessment (RN) Last Done: 01/27/24 13:10 Coding Level of Care Code 28457 INP/OBS DISCH >30 MIN Diagnoses Hydronephrosis due to obstruction of ureter N13.1 Mucocele of appendix K38.8 Asthma J45.909
== END 2024-01-27 17:08 | disposition home or self-care (01) ==
LOC: ED 11:23 → OR 16:45 → PACUINP 16:45 → SUATTDRO 17:07 → 3W 19:49